=== PATIENT | male | born 1955 ===

== ENCOUNTER 2025-05-31 09:38 | Outpatient (AMB) | payer MEDICARE, OTHER, SELFPAY ==
--- OUTSIDE RECORDS SUMMARY | 2025-05-31 10:14 | XMS_ITS | Clinical Summary ---
Author Organization [address] Address [address] [place] [address] Phone Care Team Providers Care Auto Suspension And Steering Mechanic Name Role Phone Jaxson Stanton MD Primary Care Provider [phone] Allergies Active Allergy Reactions Criticality Noted Date Comments Fluorouracil-Adhesive Bandage Rash 2024 Lobster 09/17/2024 Penicillins 09/17/2024 Shrimp 09/17/2024 Medications aspirin 81 mg capsule Take 81 mg by mouth. 1 Active vitamin D3-vitamin K2 1,250-200 mcg capsule Take 5,000 Int'l Units by mouth. 6 Active cetirizine (Aller-Madelaine) 10 mg tablet Take 1 tablet (10 mg total) by mouth. 0 Active calcium carbonate (Tums Ultra) 1,000 mg (400 mg elemental calcium) chewable tablet 1 tablet (1,000 mg total). 3 Active atorvastatin (LIPITOR) 20 mg tablet Take 1 tablet (20 mg total) by mouth 1 (one) time each day. Active glucos sul 3GWs-auy-ncvvz- C-Mn (Glucosamine Chondroitin) 550-30-1 mg capsule Take by mouth. 0 Active fluticasone propionate (FLONASE) 50 mcg/actuation nasal spray USE TWICE IN EACH NOSTRIL DAILY Active clobetasoL (TEMOVATE) 0.05 % cream APPLY TOPICALLY EVERY MORNING AND EVENING TO RASH ON HANDS, CHEST, BACK, LEGS + ARMS WHEN NEEDED 4 Active mupirocin (BACTROBAN) 2 % ointment APPLY EVERY MORNING AND EVERY EVENING TOPICALLY TO BUMPS AROUND THE LEFT EYE DURING OUTBREAK FOR 7 TO 10 DAYS 4 Active neomycin-polymy reilly-dexamethame thasone (POLYDEX) 3.5 mg/g-10,000 unit/g-0.1 % ointment APPLY TO THE UPPER EYELID OF THE RIGHT EYE AT BEDTIME FOR ONE WEEK 4 Active pimecrolimus (ELIDEL) 1 % cream APPLY DAILY TO TWICE DAILY ON FACE NEEDED 4 Active estradioL (ESTRACE) 0.01 % (0.1 mg/gram) vaginal cream Insert 1 g into the vagina 3 (three) times a week. 4 Active propranoloL (INDERAL) 10 mg tablet Take 1 tablet (10 mg total) by mouth at bedtime. Active magnesium citrate solution Take by mouth 1 (one) time. Active esomeprazole (NexIUM) 40 mg packet Take 40 mg by mouth 1 (one) time each day before breakfast. Active zfjd-yswg-bli-y eu-ttv-tnld-hor [phone] mg tablet Take by mouth. Activ e calcium carbonate (OS-TED) 1,250 mg (500 mg elemental calcium) tablet Take 1 tablet (1,250 mg total) by mouth. Active lisinopriL (PRINIVIL,ZESTR IL) 5 mg tablet Take 1 tablet (5 mg total) by mouth 1 (one) time each day. Active Active Problems Problem Noted Date Diagnosed Date FHx: colonic polyps 09/17/2024 Primary hypertension 09/17/2024 Acne rosacea 09/17/2024 Murmur, heart 09/17/2024 Obstructive sleep apnea syndrome 06/22/2020 Osteoarthritis of hip 11/02/2011 Resolved Problems Problem Noted Date Diagnosed Date Resolved Date Atrial septal defect 09/17/2024 024 Surgical History Surgery Date Site/Laterality Comments COLONOSCOPY 10/14/2018 - 10/13/2019 recall 5-years, fhx polyps, phx polyps. Dr. hirsch TOTAL HIP ARTHROPLASTY 10/14/2015 - 10/13/2016 Right WRIST FRACTURE SURGERY Bilateral REVISION TOTAL HIP ARTHROPLASTY Right BLADDER SUSPENSION WITH RECTOCELE REPAIR Medical History Medical History Date Comments Hypertension Heart murmur Sleep apnea Family History Medical History Relation Name Comments Colon polyps Brother 1 bleeding ulcer Brother 2 passed from b lood loss due to bleeding gastric ulcer Colon cancer Sister 1 Colon polyps Sister 1 cholangiocarcinoma Sister 2 Relation Name Status Comments Brother 1 Alive Brother 2 Sister 1 Alive Sister 2 (Age early 60s) Social History Tobacco Use Types Packs/Day Years Used Date Smoking Tobacco: Never Smokeless Tobacco: Never Tobacco Cessation:Counseling Given: Not Answered Alcohol Use Standard Drinks/Week Comments Yes 3 (1 standard drink = 0.6 oz pur e alcohol) WEEKENDS Interpersonal Safety Answer Date Record ed Physical Abuse 01/05/2025 Verbal Abuse 01/05/2025 Comments Unknown Sex and Gender Information Value Date Recorded Sex Assigned at Female 01/04/2025 10:15 AM EDT Legal Sex Female 8:32 AM EST Gender Identity Female 01/04/2025 10:15 AM EDT Sexual Orientation Not on file Obstetrics History Last Filed Vital Signs Vital Sign Reading Time Taken Comments Blood Pressure 112/69 01/05/2025 11:30 AM EDT Pulse 65 01/05/2025 11:30 AM EDT Temperature 36.9 C (98.4 F) 01/05/2025 11:20 AM EDT Respiratory Rate 18 01/05/2025 11:30 AM EDT Oxygen Saturation 98% 01/05/2025 11:30 AM EDT Inhaled Oxygen Concentration - - Weight 68 kg (150 lb) 01/05/2025 10:35 AM EDT Height 152.4 cm (5') 01/05/2025 10:35 AM EDT Body Mass Index 29.29 01/05/2025 10:35 AM EDT Plan of Treatment Health Maintenance Due Date Last Done Comments Breast Cancer Screening 1955 Cholesterol Screening (Lipid Panel) 08/18/2024 Hepatitis C Screening 08/18/2024 Medicare Annual Wellness Visit 08/18/2024 Osteoporosis Screening (Bone Density Screening) 08/18/2024 Social Influencers of Health Screening 08/18/2024 Hypertension/CHF/CAD Annual BMP Blood Test 09/17/2024 Depression Screening 10/14/2024 COVID-19 Vaccine (7 - Pfizer risk season) 2025 08/10/2024, 07/31/2023, 07/09/2022, Additional history exists Influenza Vaccine (#1) 2025 , 09/02/2023, 08/22/2022, Additional history exists Falls Risk Assessment 01/05/2026 01/05/2025 DTaP,Tdap,and Td Vaccines (4 - Td or Tdap) 01/16/2029 01/16/2019, 07/07/2010, 05/12/2001 Colorectal Cancer Screening: Colonoscopy 01/05/2035 01/05/2025 Zoster Vaccines Completed 08/07/2019, 07/15, 04/27/2019 Pneumococcal Vaccine: 50+ Years Completed 04/04/2023 RSV Immunization Adult Patients Completed 09/09/2023 HIB Vaccines Aged Out No longer eligi ble based on patient's age to complete this topic HPV Vaccines Aged Out No longer eligi ble based on patient's age to complete this topic Hepatitis A Vaccines Aged Out No long er eligible based on patient's age to complete this topic Hepatitis B Vaccines Aged Out No long er eligible based on patient's age to complete this topic IPV Vaccines Aged Out No longer eligi ble based on patient's age to complete this topic MMR Vaccines Aged Out No longer eligi ble based on patient's age to complete this topic Meningococcal ACWY Vaccine Aged Out N o longer eligible based on patient's age to complete this topic Meningococcal B Vaccine Aged Out No l onger eligible based on patient's age to complete this topic RSV Immunization Patients Under 20 months Aged Out No longer eligible based on patient's age to complete this topic Varicella Vaccines Aged Out No longer eligible based on patient's age to complete this topic Medical Devices Implanted Type Area Hired Hand Device Identifier Shelf Expiration Date Model / Serial / Lot Implants Implants Right: Hip Procedures Procedure Name Priority Date/Time Associated Diagnosis Comments COLONOSCOPY Routine 01/05/2025 11:09 AM EDT Personal history of colon polyps, unspecified Family history of colon polyps, unspecified Colon cancer screening from Last 3 Months or Most Recently Relevant to Health Maintenance Results * COLONOSCOPY Anesthesia - MAC; [facility] ENDOSCOPY (01/05/2025 11:09 AM EDT) Anatomical Region Laterality Modality Other 01/05/2025 10:4 0 AM EDT Impressions 01/05/2025 11:11 AM EDT - The examined portion of the ileum was normal. - One 1 mm polyp in the cecum, removed with a cold snare. Resected and retrieved. - One 3 mm polyp in the ascending colon, removed with a cold snare. Resected and retrieved. - Three 2 to 4 mm polyps in the transverse colon, removed with a cold snare. Resected and retrieved. - Diverticulosis in the sigmoid colon. - Internal hemorrhoids. Recommendation: - Await pathology results. - Repeat colonoscopy for surveillance based on pathology results. Narrative 01/05/2025 11:11 AM EDT [facility] GI Patient Name: Kaleigh Elder Procedure Date: 01/05/2025 10:40 AM Date of : 1955 Age: 69 Gender: Female Note Status: Finalized Attending MD: Moriah Doe MD, Procedure Date No Time: 01/05/2025 Procedure: Colonoscopy Indications: High risk colon cancer surveillance: Personal history of colonic polyps, Family history of advanced adenomas of the colon in multiple first-degree relatives (sister recently had 24 polyps with CRC in one polyp). Providers: Moriah Doe MD Referring MD: Jaxson Stanton MD Medicines: Propofol per Anesthesia Complications: No immediate complications. Estimated Blood Loss: Estimated blood loss: none. Procedure: Pre-Anesthesia Assessment: - ASA Grade Assessment: II - A patient with mild systemic disease. After I obtained informed consent, the scope was passed under direct vision. Throughout the procedure, the patient's blood pressure, pulse, and oxygen saturations were monitored continuously.The Olympus Pediatric Colonoscope was introduced through the anus and advanced to the terminal ileum. The colonoscopy was performed without difficulty. The patient tolerated the procedure well. The quality of the bowel preparation was good. Findings: The perianal and digital rectal examinations were normal. The terminal ileum appeared normal. A 1 mm polyp was found in the cecum. The polyp was sessile. The polyp was removed with a cold snare. Resection and retrieval were complete. A 3 mm polyp was found in the ascending colon. The polyp was sessile. The polyp was removed with a cold snare. Resection and retrieval were complete. Three sessile polyps were found in the transverse colon. The polyps were 2 to 4 mm in size. These polyps were removed with a cold snare. Resection and retrieval were complete. Multiple small-mouthed diverticula were found in the sigmoid colon. Internal hemorrhoids were found during retroflexion. The hemorrhoids were Grade I (internal hemorrhoids that do not prolapse). Procedure Code(s): --- Professional --- 21756, Colonoscopy, flexible; with removal of tumor(s), polyp(s), or other lesion(s) by snare technique Diagnosis Code(s): --- Professional --- Z86.010, Personal history of colonic polyps D12.0, Benign neoplasm of cecum D12.2, Benign neoplasm of ascending colon D12.3, Benign neoplasm of transverse colon (hepatic flexure or splenic flexure) CPT copyright 2020 [employer]. All rights reserved. The codes documented in this report are preliminary and upon oyster harvester review may be revised to meet current compliance requirements. Moriah Doe MD 01/05/2025 11:10:52 AM This report has been signed electronically.Moriah Doe MD Number of Addenda: 0 Note Initiated On: 01/05/2025 10:40 AM Scope In: Scope Out: Endoscopy Department at [facility] - [address] [place] [id number] Procedure Note Moriah Doe MD - 01/05/2025 [facility] GI Patient Name: Kaleigh Elder Procedure Date: 01/05/2025 10:40 AM Date of : 1955 Age: 69 Gender: Female Note Status: Finalized Attending MD: Moriah Doe MD, Procedure Date No Time: 01/05/2025 Procedure: Colonoscopy Indications: High risk colon cancer surveillance: Personalhistory of colonic polyps, Family history of advancedadenomas of the colon in multiple first-degree relatives (sister recently had 24 polyps with CRC in onepolyp). Providers: Moriah Doe MD Referring MD: Jaxson Stanton MD Medicines: Propofol per Anesthesia Complications: No immediate complications. Estimated Blood Loss: Estimated blood loss: none. Procedure: Pre-Anesthesia Assessment: - ASA Grade Assessment: II - A patient with mild systemic disease. After I obtained informed consent, the scope was passed under direct vision. Throughout theprocedure, the patient's blood pressure, pulse, and oxygen saturations were monitored continuously.The Olympus Pediatric Colonoscope was introduced through theanus and advanced to the terminal ileum. The colonoscopy was performed without difficulty. The patient tolerated the procedure well. The quality of thebowel preparation was good. Findings: The perianal and digital rectal examinations were normal. The terminal ileum appeared normal. A 1 mm polyp was found in the cecum. The polyp was sessile. The polyp was removed with a cold snare. Resection and retrieval were complete. A 3 mm polyp was found in the ascending colon. The polyp was sessile. The polyp was removed with acold snare. Resection and retrieval were complete. Three sessile polyps were found in the transverse colon. The polyps were 2 to 4 mm in size. Thesepolyps were removed with a cold snare. Resection and retrieval were complete. Multiple small-mouthed diverticula were found inthe sigmoid colon. Internal hemorrhoids were found duringretroflexion. The hemorrhoids were Grade I (internal hemorrhoids that do not prolapse). Procedure Code(s): --- Professional --- 43217, Colonoscopy, flexible; with removal of tumor(s), polyp(s), or other lesion(s) by snare technique Diagnosis Code(s): --- Professional --- Z86.010, Personal history of colonic polyps D12.0, Benign neoplasm of cecum D12.2, Benign neoplasm of ascending colon D12.3, Benign neoplasm of transverse colon (hepatic flexure or splenic flexure) CPT copyright 2020 [employer]. All rights reserved. The codes documented in this report are preliminary and upon oyster harvester reviewmay be revised to meet current compliance requirements. Moriah Doe MD 01/05/2025 11:10:52 AM This report has been signed electronically.Moriah Doe MD Number of Addenda: 0 Note Initiated On: 01/05/2025 10:40 AM Scope In: Scope Out: Endoscopy Department at [facility] - [address] [place] [phone] IMPRESSION: - The examined portion of the ileum was normal. - One 1 mm polyp in the cecum, removed with a cold snare. Resected and retrieved. - One 3 mm polyp in the ascending colon, removedwith a cold snare. Resected and retrieved. - Three 2 to 4 mm polyps in the transverse colon, removed with a cold snare. Resected andretrieved. - Diverticulosis in the sigmoid colon. - Internal hemorrhoids. Recommendation: - Await pathology results. - Repeat colonoscopy for surveillance based on pathology results. Moriah Doe MD GI~PROCEDURE ORDERABLES Final Result from Last 3 Months or Most Recently Relevant to Health Maintenance Insurance MEDICARE [facility] Care Teams Auto Suspension And Steering Mechanic Relationship Specialty Start Date End Date Jaxson Stanton MD [address] [place] [phone] PCP - General Internal Medicine 08/18/24
== END 2025-05-31 10:13 | disposition home or self-care (01) ==
LOC: HO.HMGAL 09:38
PROVIDERS: PCP Internal Medicine; Visit Provider Registered Nurse Emergency
DX: J30.89 Other allergic rhinitis (principal)
CPT/HCPCS: 95117; 95165

== ENCOUNTER 2025-06-16 15:42 | Outpatient (AMB) | payer MEDICARE, OTHER, SELFPAY ==
--- OUTSIDE RECORDS SUMMARY | 2024-05-08 07:21 | XMS_ITS | Continuity of Care Document ---
Author Organization [facility] Address [address] [place] [address] Phone Care Team Providers Care Advanced Research Programs Director Name Role Phone Stepan CALVILLO, RVT, RPVI, Zachary Louie U navailable Allergies, Adverse Reactions, Alerts Substance Reaction Status Criticality shellfish derived Active No Informa tion PENICILLIN Active No Information Medications Medication Instructions Dosage Effective Dates (start - stop) Status Comments lisinopril 5 mg tablet - Act hesham atorvastatin 20 mg tablet - Active ESTRADIOL (unknown strength) Not Available - Active Procedures Procedure Date Office/Outpt E&M Established 15 Mins- CT & [place] Duplex Scan-extrem Veins; Uni/ CT & [place] J Office/Outpt E&M Established 15 Mins Oct Duplex Scan-extrem Veins; / 24 Duplex Scan-extrem Veins; / 23 Ultrason Guidan Needle Bx-rad 3 Inj Sclerosing Solution; Sngl 3 Office/Outpt E&M Established 10 Mins Jul Duplex Scan-extrem Veins; 23 Inj Scleros Solut; Mx Veins 1 3 Ultrason Guidan Needle Bx-rad 3 Duplex Scan-extrem Veins; / 23 Varithena, Single Truncal Vein Endovenous Laser, 1st Vein Endovenous laser vein addon Offic/outpt E&m Estab 5 Min Trial - Tele medicine Duplex Scan-extrem Veins; Comp Office/Oupt E&M New Pt 45 Mins Advance Directives Directive Yes / No Effective Date File Name No Information Encounters Encounter Description Practice Location Reason(s) For Visit Diagnoses Date Provider Providers Copied on Encounter [facility] MD MURPHY, [address] [place] [address] Dr Kuhn [address], [place], [id number], [place] tel:[phone] CVR - [facility] No Information 4 Stepan CALVILLO RVT, JOHN Sharma. [address] [place] [address], [place], [id number] , [place]. tel:[phone] Office/Outpt E&M Established 15 Mins- CT & [place] [facility] MD MURPHY, [address] [place] [address] Dr [facility] [address], [id number], [place] tel:[phone] CVR - [facility] Essential (primary) hypertensionVe nous insufficiency (chronic) (peripheral)Ne vus, non-neoplastic 4 Stepan CALVILLO RVT, RPVI Robert. [address] [place] [address], [facility] [place], [id number] , [place]. tel:[phone] Referring Provider: Jaxson Fernandez, [address] [place], [place] [address], [address]. tel:[phone] [facility] MD MURPHY, [address] [place] [address] Dr Kuhn [address], [id number], [place] tel:[phone] CVR - [facility] Encounter for follow-up examination after completed treatment for conditions other than malignant nePain in right leg 4 Stepan CALVILLO RVT, RPVI Robert. [address] [place] [address], [place] [address], [facility] [place] [place], [id number] , [place]. tel:[phone] Referring Provider: Jaxson Fernandez, [facility] [place] [address] [place], [address]. tel:[phone] Office/Outpt E&M Established 15 Mins [facility], [address] [place] [address] Dr Kuhn [address] [address], [id number], tel:[phone] [facility] [place] [facility] [place] Chronic venous hypertension (idiopathic) without complications of bilateral lower extremityEssen tial (primary) hypertension 4 Stepan CALVILLO RVT, JOHN Sharma. [address] [place] [address], [place], [place], [id number] , [place]. [phone] Referring Provider: Jaxson Fernandez, [address] [place], [place] [address] [place], [address]. tel:[phone] [facility], [address] [place] [address] Dr Kuhn 1000[facility] Kyle Cage [place], [id number], [place] tel:[phone] CVR - [facility] Encounter for follow-up examination after completed treatment for conditions other than malignant neVaricose veins of right lower extremity with pain 4 Stepan CALVILLO RVT, JOHN Sharma. [address] [place] [address], [place], [place], [id number] , [place]. tel:[phone] Referring Provider: Jaxson Stanton MD R, [address] [place], [place] [address] [place], [address]. tel:[phone] [facility], [address] [place] [address] Dr Kuhn 1000[facility] Kyle Cage [place], [id number], [place] tel:[phone] CVR - [facility] Encounter for follow-up examination after completed treatment for conditions other than malignant neoplasmVarico se veins of right lower extremity with pain 3 Herbert Bobby. [address] [place] [address], [facility] [place], [address], [place]. tel:[phone] Referring Provider: Jaxson Fernandez, [address] [place], [place] [address] [place], [address]. tel:[phone] [facility], [address] [place] [address] [address], [id number], [place] tel:[phone] [facility] - [place] [facility] [place] Varicose veins of right lower extremity with inflammation 3 Stepan CALVILLO RVT, JOHN Sharma. [address] [facility], [address], [place], [id number] , [place]. tel:[phone] Referring Provider: Jaxson Stanton MD R, [facility], [place], [address]. tel:[phone] Office/Outpt E&M Established 10 Mins Darion [facility], [address] [place] [address] Dr Kuhn 1000[address] 1000[place], [id number], [place] tel:[phone] [facility] [place] [facility] [place] Varicose veins of right lower extremity with other complicationsE ssential (primary) hypertension 3 Stepan CALVILLO RVT, JOHN Sharma. [address] [place] [address], [address], [place]tor [place]on [place], [id number] , [place]. tel:[phone] Referring Provider: Jaxson Stanton MD R, [address] [place] [address], [place], [address]. tel:[phone] [facility]ion Jim[facility], [address] [place] [address] Dr Kuhn 1000[address], [id number], [place] tel:[phone] [facility] - [place] [facility] [place] Encounter for follow-up examination after completed treatment for conditions other than malignant neoplasmVarico se veins of right lower extremity with pain 3 Herbert Bobby. [address] [facility] [facility], [address], [place], [address], [place]. tel:[phone] Referring Provider: Jaxson Stanton MD R, [facility] [address], [place], [address]. tel:[phone] Dar[facility] Jim[facility], [address] [place] [address] [address], [id number], [place] tel:[phone] [facility] Chronic venous hypertension (idiopathic) with inflammation of right lower extremity Oct-0 3 Stepan CALVILLO RVT, RPVI Robert. [address] [place] [address], [place], [place], [id number] , [place]. tel:[phone] Referring Provider: Jasxon Stanton MD R, [address] [place] [address], [facility] [place], [address]. tel:[phone] [facility], [address] [place] [address] [facility] [address] 1000[place], [id number], [place] tel:[phone] [facility] Encounter for follow-up examination after completed treatment for conditions other than malignant neVaricose veins of right lower extremity with pain Oct-0 3 Herbert Bobby. [address] [place] [address], [place], [address], [place]. tel:[phone] Referring Provider: Jaxson Stanton MD R, [address] [place] [address], [facility] [place], [address]. tel:[phone] [facility], [address] [place] [address] [facility] 1000[address] 1000[place], [id number], [place] tel:[phone] [facility] Chronic venous hypertension w inflammation of r low extrem Sep-2 3 Stepan CALVILLO RVT, RPVI Robert. [address] [place] [address], [facility] [place], [id number] , [place]. tel:[phone] Referring Provider: Jaxson Stanton MD R, [address] [place] [address], [facility] [place], [address]. tel:[phone] [facility], [address] [place] [address] Dr Kuhn 1000[address] 1000[place], [id number], [place] tel:[phone] [facility] Chronic venous hypertension w inflammation of r low extrem Sep-2 3 Stepan CALVILLO RVT, RPVI Robert. [address] [place] [address], [place], [place], [id number] , [place]. tel:[phone] Referring Provider: Jaxson Stanton MD R, [address] [place] [address], [facility] [place], [address]. tel:[phone] Offic/outpt E&m Estab 5 Min Trial - Telemedicine [facility], [address] [place] [address] [facility] [address] [address], [id number], [place] tel:[phone] [facility] - [place] [facility] [place] Chronic venous htn w oth comp of bilateral low extrm 3 Herbert CALVILLO FACS RVT JOHN Bobby. [address] [place] [address], [place], [address], [place]. tel:[phone] Referring Provider: Jaxson Stanton MD R, [address] [place] [address], [facility] [place], [address]. tel:[phone] [facility] [facility], [address] [place] [address] [facility] [address] [address], [id number], [place] tel:[phone] [facility] [place] [facility] [place] Varicose veins of bilateral lower extremities with pain 3 Herbert CALVILLO FACS RVT JOHN Bobby. [address] [place] [address], [place], [address], [place]. tel:[phone] Referring Provider: Jaxson Stanton MD R, [address] [place] [address], [place], [address]. tel:[phone] Office/Oupt E&M New Pt 45 Mins [facility], [address] [place] [address] [facility] [address], [id number], [place] tel:[phone] [facility] [place] [facility] [place] Varicose veins of bi low extrem w oth complicationsP ain in right lower legPain in left lower legEssential (primary) hypertensionFl ail joint, unspecified jointPain in right legPain in left leg 3 Stepan CALVILLO, RVT, JOHN Sharma. [address] [place] [address], [address], [place], [id number] , [place]. tel:[phone] Referring Provider: Jaxson Stanton MD R, [address] [facility] [address], [place] Baltazar [place], [address]. tel:[phone] Family History Family Member Type Diagnosis Age At Onset No Information Payers Payer name Insurance type Covered democrat ID Authoriza tirama(s) Medicare BALTAZAR ROMAN [id number] [facility] [id number] Social History Type Description Quantity Date Captured Comments Alcohol Use Details Unknown Caffeine Use Details Unknown Tobacco Use Status No Information Smoking Status No Information Sex Female Chief Complaint And Reason For Visit No Information Reason For Referral Reason For Referral No Information Plan Of Treatment Date Type Action Status Goal Tobacco cessation counseling completed Goal Diet education completed Goal Tobacco cessation counseling completed Goal Diet education completed Goal Tobacco cessation counseling completed Goal Tobacco cessation counseling completed Goal Diet education completed Goal Tobacco cessation counseling completed Referral Ordered: Weight management: Referral to physician timeframe: 3 Months (related to Body mass index (BMI) 28.0-28.9, adult) ordered Referral Ordered: Weight management: Referral to physician timeframe: 3 Months (related to Body mass index (BMI) 28.0-28.9, adult) ordered Referral Ordered: Weight management: Referral to physician timeframe: 3 Months (related to Body mass index (BMI) 28.0-28.9, adult) ordered Appointment Kaleigh Elder BOOKED Appointment Kaleigh Elder BOOKED History Of Present Illness Encounter Date Complaint History Of Prese nt Illness No Information Functional Status Date Functional Assessmen t No Information Instructions Date Instruction Additional Infor mation Lifestyle education Related to B veronica mass index (BMI) 28.0-28.9, adult Giving Encouragement to exercise Related to Body mass index (BMI) 28.0-28.9, adult Diet education Related to Body mass index (BMI) 28.0-28.9, adult Patient education booklet given Related to Venous insufficiency (chronic) (peripheral) Compression stocking usage as conservative measure Related to Venous insufficiency (chronic) (peripheral) Compression stocking usage as conservative measure Related to Chronic venous hypertension (idiopathic) without complications of bilateral lower extremity Pre and post instruc tions reviewed and provided Related to Chronic venous hypertension (idiopathic) without complications of bilateral lower extremity Lifestyle education Related to B veronica mass index (BMI) 28.0-28.9, adult Giving Encouragement to exercise Related to Body mass index (BMI) 28.0-28.9, adult Diet education Related to Body mass index (BMI) 28.0-28.9, adult Compression stocking usage as conservative measure Related to Varicose veins of right lower extremity with other complications Pre and post instruc tions reviewed and provided Related to Varicose veins of right lower extremity with other complications Patient education booklet given Related to Chrn Vns Hyprtnsn w/Compl (Pain Edema Swelling); BILAT Diet education Related to Body mass index (BMI) 28.0-28.9, adult Giving Encouragement to exercise Related to Body mass index (BMI) 28.0-28.9, adult Lifestyle education Related to B veronica mass index (BMI) 28.0-28.9, adult Patient education booklet given Related to Varicose veins of bi low extrem w oth complications Pre and post instruc tions reviewed and provided Related to Varicose veins of bi low extrem w oth complications Assessments Type Assessment Date No Information Patient Care Teams Name Effective Dates (start - stop) Status Members No Information
--- OUTSIDE RECORDS SUMMARY | 2025-06-16 17:39 | XMS_ITS | Clinical Summary ---
Author Organization [address] Address [address] [place] [address] Phone Care Team Providers Care Knife Operator Name Role Phone Jaxson Stanton MD Primary Care Provider [phone] Allergies Active Allergy Reactions Criticality Noted Date [...] (one) time each day. Active glucos sul 4TXr-mut-wepmo- C-Mn (Glucosamine Chondroitin) 550-30-1 mg capsule Take [...] (one) time each day before breakfast. Active zrqp-vsvp-wsp-y de-sws-dbqb-hor [phone] mg tablet Take by mouth. Activ e [...] this topic Medical Devices Implanted Type Area Manager Lab Device Identifier Shelf Expiration Date Model / Serial / Lot Implants Implants Right: Hip Procedures Procedure Name Priority Date/Time Associated Diagnosis Comments COLONOSCOPY Routine 01/05/2025 11:09 AM EDT Personal history of colon polyps, unspecified Family history of colon polyps, unspecified Colon cancer screening from Last 3 Months or Most Recently Relevant to Health Maintenance Results * COLONOSCOPY Anesthesia - MAC; [facility] ENDOSCOPY (01/05/2025 11:09 AM EDT) Anatomical Region [...] pathology results. Narrative 01/05/2025 11:11 AM EDT [facility] GI Patient Name: Kaleigh Elder Procedure Date: [...] not prolapse). Procedure Code(s): --- Professional --- 64572, Colonoscopy, flexible; with removal of tumor(s), polyp(s), or other lesion(s) by snare technique Diagnosis Code(s): --- Professional --- Z86.010, Personal history of colonic polyps D12.0, Benign neoplasm of cecum D12.2, Benign neoplasm of ascending colon D12.3, Benign neoplasm of transverse colon (hepatic flexure or splenic flexure) CPT copyright 2020 [employer]. All rights reserved. The codes documented in this report are preliminary and upon meat soaker review may be revised to meet current compliance requirements. Moriah Doe MD 01/05/2025 11:10:52 AM This report has been signed electronically.Moriah Doe MD Number of Addenda: 0 Note Initiated On: 01/05/2025 10:40 AM Scope In: Scope Out: Endoscopy Department at [facility] - [address] [place] [phone] Procedure Note Moriah Doe MD - 01/05/2025 [facility] GI Patient Name: Kaleigh Elder Procedure Date: [...] not prolapse). Procedure Code(s): --- Professional --- 96423, Colonoscopy, flexible; with removal of tumor(s), polyp(s), or other lesion(s) by snare technique Diagnosis Code(s): --- Professional --- Z86.010, Personal history of colonic polyps D12.0, Benign neoplasm of cecum D12.2, Benign neoplasm of ascending colon D12.3, Benign neoplasm of transverse colon (hepatic flexure or splenic flexure) CPT copyright 2020 [employer]. All rights reserved. The codes documented in this report are preliminary and upon meat soaker reviewmay be revised to meet current compliance requirements. Moriah Doe MD 01/05/2025 11:10:52 AM This report has been signed electronically.Moriah Doe MD Number of Addenda: 0 Note Initiated On: 01/05/2025 10:40 AM Scope In: Scope Out: Endoscopy Department at [facility] - [address] [place] [id number] IMPRESSION: - The examined portion of the [...] Recently Relevant to Health Maintenance Insurance MEDICARE [facility] Care Teams Knife Operator Relationship Specialty Start Date End Date Jaxson Stanton MD [address] [place] [phone] PCP - General Internal Medicine 08/18/24
== END 2025-06-16 15:44 | disposition home or self-care (01) ==
LOC: HO.HMGAL 15:42
PROVIDERS: PCP Internal Medicine; Visit Provider Registered Nurse Emergency
DX: J30.89 Other allergic rhinitis (principal)
CPT/HCPCS: 95117; 95165

== ENCOUNTER 2025-06-30 11:44 | Outpatient (AMB) | payer MEDICARE, OTHER, SELFPAY | END 2025-06-30 11:45 | disposition home or self-care (01) | LOC: HO.HMGAL 11:44 | PROVIDERS: PCP Internal Medicine; Visit Provider Registered Nurse Emergency | DX: J30.89 Other allergic rhinitis (principal) | CPT/HCPCS: 95117; 95165 ==

== ENCOUNTER 2025-07-19 13:48 | Outpatient (AMB) | payer MEDICARE, OTHER, SELFPAY ==
--- OUTSIDE RECORDS SUMMARY | 2025-07-19 16:14 | XMS_ITS | Clinical Summary ---
Author Organization [address] Address [address] [place] [address] Phone Care Team Providers Care Metal Furrer Name Role Phone Jaxson Stanton MD Primary Care Provider [phone] Allergies Active Allergy Reactions Criticality Noted Date [...] (one) time each day. Active glucos sul 3CEy-byo-vnrxu- C-Mn (Glucosamine Chondroitin) 550-30-1 mg capsule Take [...] (one) time each day before breakfast. Active geec-lfjz-wnx-y aa-gjo-abhy-hor [id number] mg tablet Take by mouth. Activ e [...] Safety Answer Date Record ed Physical Abuse Unrecognized value 01/05/2025 Verbal Abuse Unrecognized value 01/05/2025 Comments Unknown Sex and Gender Information [...] this topic Medical Devices Implanted Type Area Business Assistant Device Identifier Shelf Expiration Date Model / Serial / Lot Implants Implants Right: Hip Procedures Procedure Name Priority Date/Time Associated Diagnosis Comments COLONOSCOPY Routine 01/05/2025 11:09 AM EDT Personal history of colon polyps, unspecified Family history of colon polyps, unspecified Colon cancer screening from Last 3 Months or Most Recently Relevant to Health Maintenance Results * COLONOSCOPY Anesthesia - MAC; [email or web address] ENDOSCOPY (01/05/2025 11:09 AM EDT) Anatomical Region [...] pathology results. Narrative 01/05/2025 11:11 AM EDT [facility] Patient Name: Kaleigh Elder Procedure [...] not prolapse). Procedure Code(s): --- Professional --- 43978, Colonoscopy, flexible; with removal of tumor(s), polyp(s), or other lesion(s) by snare technique Diagnosis Code(s): --- Professional --- Z86.010, Personal history of colonic polyps D12.0, Benign neoplasm of cecum D12.2, Benign neoplasm of ascending colon D12.3, Benign neoplasm of transverse colon (hepatic flexure or splenic flexure) CPT copyright 2020 [employer]. All rights reserved. The codes documented in this report are preliminary and upon field test engineer review may be revised to meet current compliance requirements. Moriah Doe MD 01/05/2025 11:10:52 AM This report has been signed electronically.Moriah Doe MD Number of Addenda: 0 Note Initiated On: 01/05/2025 10:40 AM Scope In: Scope Out: Endoscopy Department at [facility] - [address] [place] [id number] Procedure Note Moriah Doe MD - 01/05/2025 [facility] Patient Name: Kaleigh Elder Procedure [...] not prolapse). Procedure Code(s): --- Professional --- 69454, Colonoscopy, flexible; with removal of tumor(s), polyp(s), or other lesion(s) by snare technique Diagnosis Code(s): --- Professional --- Z86.010, Personal history of colonic polyps D12.0, Benign neoplasm of cecum D12.2, Benign neoplasm of ascending colon D12.3, Benign neoplasm of transverse colon (hepatic flexure or splenic flexure) CPT copyright 2020 [employer]. All rights reserved. The codes documented in this report are preliminary and upon field test engineer reviewmay be revised to meet current compliance requirements. Moriah Doe MD 01/05/2025 11:10:52 AM This report has been signed electronically.Moriah Doe MD Number of Addenda: 0 Note Initiated On: 01/05/2025 10:40 AM Scope In: Scope Out: Endoscopy Department at [facility] - [address] [place] [id number] IMPRESSION: - The examined portion of the [...] Recently Relevant to Health Maintenance Insurance MEDICARE [facility] Care Teams Metal Furrer Relationship Specialty Start Date End Date Jaxson Stanton MD [address] [place] [address] PCP - General Internal Medicine 08/18/24
== END 2025-07-19 13:49 | disposition home or self-care (01) ==
LOC: HO.HMGAL 13:48
PROVIDERS: PCP Internal Medicine; Visit Provider Registered Nurse Emergency
DX: J30.89 Other allergic rhinitis (principal)
CPT/HCPCS: 95117; 95165

== ENCOUNTER 2025-08-02 11:42 | Outpatient (AMB) | payer MEDICARE, OTHER, SELFPAY | END 2025-08-02 11:43 | disposition home or self-care (01) | LOC: HO.HMGAL 11:42 | PROVIDERS: PCP Internal Medicine; Visit Provider Registered Nurse Emergency | DX: J30.89 Other allergic rhinitis (principal) | CPT/HCPCS: 95117; 95165 ==

== ENCOUNTER 2025-08-18 14:34 | Outpatient (AMB) | payer MEDICARE, OTHER, SELFPAY ==
--- OUTSIDE RECORDS SUMMARY | 2025-06-28 04:00 | XMS_ITS | Continuity of Care Document ---
Author Organization [facility] Address [address] [place] [address] Phone Care Team Providers Care Seo Coordinator Name Role Phone Stepan CALVILLO, RVT, RPVI, [...] E&M Established 15 Mins- CT & [place] Surgical Stockings CVR Reveal Thigh High Duplex Scan-extrem Veins; Comp- CT & [place] Office/Outpt E&M Established 15 Mins- CT & [place] Duplex Scan-extrem Veins; Uni/ CT & [place] J Office/Outpt E&M Established 15 Mins Oct Duplex Scan-extrem Veins; Uni/ 24 Duplex Scan-extrem Veins; Uni/ 23 Ultrason Guidan Needle Bx-rad 3 Inj Sclerosing Solution; Sngl 3 Office/Outpt E&M Established 10 Mins Jul Duplex Scan-extrem Veins; Uni/ 23 Inj Scleros Solut; Mx Veins 1 3 Ultrason Guidan Needle Bx-rad 3 Duplex Scan-extrem Veins; Uni/ Varithena, Single Truncal Vein Endovenous Laser, 1st Vein Endovenous laser vein addon Offic/outpt E&m Estab 5 Min Trial - Tele medicine Duplex Scan-extrem Veins; Comp Office/Oupt E&M New Pt 45 Mins Advance Directives Directive Yes / No Effective Date File Name Other Directive No 06/28/2025 N/A WARNING:The information contained in this section is historical and is provided for information only and does not constitute a legal document or any assurance that the information is still accurate. Please verify the information with the stockton of the legal document before using it for clinical purposes. Encounters Encounter Description Practice Location Reason(s) For Visit Diagnoses Date Provider Providers Copied on Encounter Office/Outpt E&M Established 15 Mins- CT & [place] [facility], [address] [place] [address] [facility] [address] [address], [id number], [place] tel:[phone] [facility] [place] Varicose veins of right lower extremity with other complicationsP ruritus, unspecifiedEss ential (primary) hypertension Sep- 5 Stepan CALVILLO RVT, JOHN Sharma. [address] [place] [address], [facility] [place], [id number] , [place]. tel:[phone] Referring Provider: Jaxson Fernandez, [address] [place] [address], [facility] [address]. tel:[phone] [facility], [address] [place] [address] [facility] [address] [address], [place], [id number], [place] tel:[phone] [facility] [place] Chronic venous hypertension (idiopathic) with other complications of bilateral lower extremity Sep- 5 Stepan CALVILLO RVT, JOHN Sharma. [address] [place] [address], [facility] [place], [id number] , [place]. tel:[phone] Referring Provider: Jaxson Fernandez, [address] [place] [address], [place], [address]. tel:[phone] Office/Outpt E&M Established [facility], [address] [place] [address] Dr [address], [id number], [place] tel:[phone] CV - [facility] Essential (primary) hypertensionVe nous insufficiency (chronic) (peripheral)Ne vus, non-neoplastic 4 Stepan CALVILLO RVT, JOHN Sharma. [address] [place] [address], [place] [address], [facility] [place], [id number] , [place]. tel:[phone] Referring Provider: Jaxson Stanton MD R, [address] [place] [address], [place], [address]. tel:[phone] [place] [facility], [address] [place] [address] [address] [address], [id number], [place] tel:[phone] [facility] - [facility] Encounter for follow-up examination after completed treatment for conditions other than malignant nePain in right leg 4 Stepan CALVILLO RVT, JOHN Sharma. [address] [place] [address], [place], [place], [id number] , [place]. tel:[phone] Referring Provider: Jaxson Stanton MD R, [address] [place] [address], [place], [address]. tel:[phone] Office/Outpt E&M Established 15 Mins [place] [facility], [address] [place] [address] Dr [address]uhn [address], [id number], [place] tel:[phone] CV - [facility] Chronic venous hypertension (idiopathic) without complications of bilateral lower extremityEssen tial (primary) hypertension 4 Stepan CALVILLO RVT, JOHN Sharma. [address] [place] [address], [place] [address], [facility] [place], [id number] , [place]. tel:[phone] Referring Provider: Jaxson Stanton MD R, [address] [place] [address] [place], [address]. tel:[phone] [place] [facility], [address] [place] [address] [facility] [address] [place] [address], [id number], tel:[phone] [facility] [place] [facility] [place] Encounter for follow-up examination after completed treatment for conditions other than malignant neVaricose veins of right lower extremity with pain 4 Stepan CALVILLO RVT, JOHN Sharma. [address] [place] [address], [place] simon [place], [id number] , [place]. tel:[phone] Referring Provider: Jaxson Stanton MD R, [address] [place] [address] [place], [address]. tel:[phone] [place] [facility], [address] [place] [address] [place], [place] [address]K[place], [id number], [place] tel:[phone] CVR - [facility] Encounter for follow-up examination after completed treatment for conditions other than malignant neoplasmVarico se veins of right lower extremity with pain 3 Herbert Bobby. [address] [place] [address], [facility] [place], [address], [place]. tel:[phone] Referring Provider: Jaxson Stanton MD R, [address] [place] [address] [place], [address]. tel:[phone] [place] [facility], [address] [place] [address] Dr [address] [address], [id number], [place] tel:[phone] [facility] Varicose veins of right lower extremity with inflammation 3 Stepan CALVILLO RVT, JOHN Sharma. [address] [place] [address], [facility] [place], [id number] , [place]. tel:[phone] Referring Provider: Jaxson Stanton MD R, [address] [place] [address] [place], [address]. tel:[phone] Office/Outpt E&M Established 10 Mins [facility], [address] [place] [address] [address], [id number], [place] tel:[phone] [facility] Varicose veins of right lower extremity with other complicationsE ssential (primary) hypertension Oct-3 0 3 Stepan CALVILLO, RVT, JOHN Sharma. [address] [place] [address], [address], [facility] [place], [id number] , [place]. tel:[phone] Referring Provider: Jaxson Stanton MD R, [facility] [address], [place], [address]. tel:[phone] [place] [facility], [address] [place] [address] Dr Kuhn [address]Suite [place] Cage [place], [id number], [place] tel:[phone] [facility] [place] Encounter for follow-up examination after completed treatment for conditions other than malignant neoplasmVarico se veins of right lower extremity with pain Oct-3 3 Herbert Bobby. [address] [place] [address], [place] [address], [facility] [place], [address], [place]. tel:[phone] Referring Provider: Jaxson Stanton MD R, [address] [place] [address], [place], [address]. tel:[phone] [place] [facility], [address] [place] [address] [address] [place] Cage [place], [id number], [place] tel:[phone] [facility] Chronic venous hypertension (idiopathic) with inflammation of right lower extremity Oct-0 3 HOLDEN Ying MDT, JOHN Sharma. [address] [place] [address], [address], [facility] [place], [id number] , [place]. tel:[phone] Referring Provider: Jaxson Stanton MD R, [facility] [address], [place], [address]. tel:[phone] [place] [facility], [address] [place] [address] Dr [address]n [address] [place] Cage [place], [id number], [place] tel:[phone] [facility] Encounter for follow-up examination after completed treatment for conditions other than malignant neVaricose veins of right lower extremity with pain Oct-0 3 Herbert CALVILLO FACS HOLDENT JOHN Bobby. [address] [place] [address], [place], [address], [place]. tel:[phone] Referring Provider: Jaxson Stanton MD R, [address] [place] [address], [place], [address]. tel:[phone] [place] [facility], [address] [place] [address] Dr [address] 1000[facility] 1000, [place], [id number], [place] tel:[phone] [facility] Chronic venous hypertension w inflammation of r low extrem Sep-2 3 Stepan CALVILLO, MELITON, JOHN Sharma. [address] [place] [address], [place], [place], [id number] , [place]. tel:[phone] Referring Provider: Jaxson Stanton MD R, [address] [place] [address], [place], [address]. tel:[phone] [place] [facility], [address] [place] [address] Dr [address] [address], [id number], [place] tel:[phone] [facility] Chronic venous hypertension w inflammation of r low extrem Sep-2 3 Stepan CALVILLO, MELITON, JOHN Shamra. [address] [place] [address], [place], [place], [id number] , [place]. tel:[phone] Referring Provider: Jaxson Stanton MD R, [address] [place] [address], [place], [address]. tel:[phone] Offic/outpt E&m Estab 5 Min Trial - Telemedicine [facility], [address] [place] [address] Dr K[address]n [facility] [address], [id number], [place] tel:[phone] [facility] Chronic venous htn w oth comp of bilateral low extrm Aug-3 3 Herbert CALVILLO FACS HOLDENLloyd Bobby. [address] [place] [address], [place] [address], [place], [address], [place]. tel:[phone] Referring Provider: Jaxson Stanton MD R, [address] [place] [address], [place], [address]. tel:[phone] [facility], [address] [place] [address] [address], [place], [id number], [place] tel:[phone] [facility] [place] Varicose veins of bilateral lower extremities with pain 3 Herbert CALVILLO FACS RVT JOHN Bobby. [address] [place] [address], [place] [address], [place], [address], [place]. tel:[phone] Referring Provider: Jaxson Stanton MD R, [address] [place] [address], [place], [address]. tel:[phone] Office/Oupt E&M New Pt 45 Mins [facility], [address] [place] [address] [facility] [address], [place], [id number], [place] tel:[phone] [facility] Varicose veins of bi low extrem w oth complicationsP ain in right lower legPain in left lower legEssential (primary) hypertensionFl ail joint, unspecified jointPain in right legPain in left leg 3 Stepan CALVILLO, RVT, JOHN Sharma. [address] [place] [address], [place] [address], Viktor simon [place], [id number] , [place]. tel:[phone] Referring Provider: Jaxson Stanton MD R, [address] [place] [address], [place], [address]. tel:[phone] Family History Family Member Type Diagnosis Age At Onset No Information Payers Payer name Insurance type Covered libertarian ID Authoriza tion(s) Medicare BALTAZAR ROMAN [id number] [facility] CI [id number] Social History Type Description Quantity Date Captured Comments Alcohol Use Details Unknown Caffeine Use Details Unknown Tobacco Use Status No Information Smoking Status Former Smoker Non-Smoking Tobacco Use Details : No Details Available : No Details Available Sex Female Vital Signs Date / Time: Height Weight BMI Pulse Rate Blood Pressure Temperature Respiratory Rate Body Surface Area Head Circumference Head Circ. Percentile Wt./Kevin. Percentile BMI percentile Pulse Ox Inhaled Ox 68.040 kg (150.00 lbs) 28.3 6 kg/m eter (2) 118/80 mm[Hg] Chief Complaint And Reason For Visit No [...] cessation counseling completed Goal Diet education completed Referral Ordered: Weight management: Referral to [...] Kaleigh Elder BOOKED Appointment Kaleigh Elder BOOKED Appointment Kaleigh Elder BOOKED Appointment Kaleigh Elder BOOKED History Of Present Illness Encounter Date Complaint History Of Prese nt Illness No Information Functional Status Date Functional Assessmen t No Information Instructions Date Instruction Additional Infor marky Patient education booklet given Related to Varicose veins of right lower extremity with other complications Compression stocking usage as conservative measure Related to Varicose veins of right lower extremity with other complications Lifestyle education Related to B veronica mass [...] to Body mass index (BMI) 28.0-28.9, adult Pre and post instruc tions reviewed and provided Related to Varicose veins of right lower extremity with other complications Compression stocking usage as conservative measure Related to Varicose veins of right lower extremity with other complications Patient education booklet given Related to Chrn Vns Hyprtnsn w/Compl (Pain Edema Swelling); BILAT Pre and post instruc tions reviewed and provided Related to Varicose veins of bi low extrem w oth complications Patient education booklet given Related to Varicose veins of bi low extrem w oth complications Lifestyle education Related to B veronica mass index (BMI) 28.0-28.9, adult Giving Encouragement to exercise Related to Body mass index (BMI) 28.0-28.9, adult Diet education Related to Body mass index (BMI) 28.0-28.9, adult Assessments Type Assessment Date No Information Patient Care Teams Name Effective Dates (start - stop) Status Members No Information
--- OUTSIDE RECORDS SUMMARY | 2025-08-18 17:44 | XMS_ITS | Data Portability ---
Author Organization [facility] Address [address] [place] [address] Care Team Providers Care Investigative Research Specialist Name Role Phone ONEIL SANTIAGO Primary Care Provider ONEIL SANTIAGO Referring Provider Assessment No assessment recorded. Plan of Treatment Reminders Order Date Submit Date Provider Last Modified By Organization Details Last Modified Time Details Appointments None recorded. Lab None recorded. Referral physical therapist referral - patient to call for appointment 2022 023 [facility], [address] [place] [address], [id number], 3 16:26:13 Procedures epidural steroid injection, lumbar (PROC) - Dr. Gonzalez - nahid L2-3 2023 024 [email or web address] Not available 4 13:39:19 Surgeries None recorded. Imaging MRI, cervical spine, w/o contrast 2022 023 DANYELLE [facility] ([facility]), [address] [facility], [place], [address], 3 14:58:34 MRI, shoulder, w/o contrast - byrne 2022 023 [email or web address] [facility] ([facility]), [address] [facility], [place], [address], 3 15:40:04 Medication Orders prednisone 5 mg tablet 2022 024 DANYELLE [id number], [address] [facility], [place], [place], [id number], 4 10:28:54 Patient TargetsNo targets recorded. Patient InstructionsNo instructions recorded. Reason for Referral Physical Therapist Referral for Lumbar spondylolisthesis patient to call for appointment home exercise program Referring Physician: Carla Ambrosio, Orthopedic Surgery, Encounter Date: 05/09/2023 Results Created Date Observation Date Name Description Value Unit Range Abnormal Flag Note LastModifiedBy Organization Detail LastModifiedTime 03/05/20 23 03/04/2023 MRI, leonardo mckeon, w/o contr ast [facility] Access ion Number : [id number] Sarah villalpando Name: Kaleigh Christie Record Number : [id number] Date of : 1954 Date of Exam: 2022 Referr ing Physic alice: Tyson Eastman [facility] [address] [facility], [address] [place] [address] Exam: MR Should er (C-) CPT 10896 - Left Room Descri ption: [place] [facility] Verio 3.0T Should er MRI left Clinic al Histor y: Pain Findin gs: Mild acromi oclavi cular osteoa rthrit is Supras pinatu s tendin opathy with superi mposed small low-gr geri partia l articu lar surfac e tear within salgado hed fibers . Advanc ed infras pinatu s tendin opathy with superi mposed small low-gr geri partia l articu lar versus intras ubstan ce tear. Small myoten dinous cyst within the infras pinatu s. The teres minor tendon is intact . Mild fatty atroph y of the teres minor muscle belly Subsca pulari s tendin opathy Intra- articu lar biceps tendin opathy Modera te glenoh umeral osteoa rthrit is. Diffus e absenc e of glenoi d cartil age with modera te glenoh umeral osteop hytosi s. Diffus e labral degene ration . Impres meir: Supras pinatu s tendin opathy with superi mposed low-gr geri partia l tear. Advanc ed infras pinatu s tendin opathy with superi mposed low-gr geri partia l tear. Small myoten dinous cyst within the infras pinatu s Subsca pulari s and biceps tendin opathy . Mild fatty atroph y of the teres minor muscle belly. Findin g can be seen with segundo latera l space syndro me. Mild acromi oclavi cular osteoa rthrit is. Modera te glenoh umeral osteoa rthrit is Electr onical ly Signed By: Mike Gonzalez [email or web address] [facility] ([facility]) [address] [place], [address], 04/05/2023 09:58:32 04/11/20 unk No observ ation record ed. [address], [address] 04/12/2023 07:23:27 04/17/20 23 04/15/2023 MRI, lumba r spine , w/o contr ast [facility] Access ion Number : [id number] Sarah t Name: Owen garcia Kaleigh Phillipsoksana méndez Record Number : [id number] Date of : 1954 Date of Exam: 2022 Referr ing Physic alice: Tyson Eastman [facility] [address] [place] [address] - [address] [place] [address] Exam: MR Lumbar Spine (C-) CPT 91397 Room Descri ption: [facility] Verio 3.0T HISTOR Y: Lumbar radicu lopath y. Left leg pain and parest hesias . Back pain. TECHNI QUE: Multip lanar multis equenc e MRI of the lumbar spine withou t contra st. COMPAR OIN: 019 FINDIN GS: Mild degene rative paolo listhe sis of L4 on L5 and L5 on S1. Mild retrol isthes is of L1 on L2, L2 on L3, and L3 on L4. The lumbar verteb ral bodies are normal in height . No spondy lolysi s. The lumbar discs are desicc ated. Severe loss of height of L1-L2, L2-L3, and L3-L4. The L5-S1 disc is modera te-sev erely dimini shed in height . Mild loss of height of L4-L5. Margin al osteop hytes, facet arthro ses, and Schmor l's nodes are presen t at multip le levels . Degene rative change s of the visual ized lower thorac ic spine are again noted with concen tric disc-o steoph yte comple xes and mild centra l canal narrow ing at T10-T1 1. The visual ized lower thorac ic cord is normal in signal , and the conus termin ates at L2-L3, which is at the lower limits of normal . No epidur al fluid collec tion or cauda equina compre ssion. Fatty atroph y of the cup trimming machine operator ior parasp inal muscul ature. No acute retrop eriton eal abnorm ality. L1-L2: Mild concen tric disc-o steoph yte comple x and facet arthro sis. Minima l centra l canal narrow ing. Mild right and no left forami nal narrow ing. No signif icant change . L2-L3: Concen tric disc-o steoph yte comple x, facet arthro sis, and mild centra l canal narrow ing. Modera te-sev ere right and modera te left forami nal stenos is. No signif icant change . L3-L4: Concen tric disc-o steoph yte comple x, facet arthro sis, and mild left centra l canal and subart icular recess narrow ing. Crowdi ng of the left L3 nerve roots withou t new imping ement. Mild right and severe left forami nal stenos is. No signif icant change . L4-L5: Concen tric disc bulge, facet arthro sis, and ligame ntum flavum infold ing. Mild paolo listhe sis. Mild centra l canal narrow ing. Mild forami nal narrow ing. L5-S1: Degene rative paolo listhe sis, facet arthro sis, and ligame ntum flavum infold ing. Concen tric disc bulge. Mild-m oderat e centra l canal narrow ing is now presen t. Subart icular recess narrow ing with crowdi ng of the S1 nerve roots. Modera te right and modera te-sev ere left forami nal narrow ing with crowdi ng of the left L5 nerve roots. IMPRES MEIR: Degene rative change s of the lower thorac ic and lumbar spine as detail ed above. These can be correl ated with the patien t's sympto ms and neurol ogical examin ation. Electr onical ly Signed By: Torsten [email or web address] [facility] ([facility]) [address], [place], [address], 05/07/2023 08:16:53 09/20/2009/20/2023 XR, cervi marcy spine , 2 or 3 view PRELIM INARY INTERP RETATI ON - NOT A FINAL REPORT RESPON SIBLE INTERP RETER: Ayan cleaning M.D. (resid ent) EXAMIN ATION: XR CERVIC AL SPINE 2 OR 3 VW CLINIC AL INDICA TION: Neck pain. TECHNI QUE: Two views of the cervic al spine. COMPAR ONI: None availa ble. FINDIN GS: There is modera te to severe cervic al spondy losis most pronou nced at C5-6 with large anteri or osteop hytes. There is minima l retrol isthes is of C5 on C6. Verteb ral body alignm ent is otherw ise preser sacha. Verteb ral body height s are preser sacha. The soft tissue s are normal . IMPRES MEIR: Modera te to severe cervic al spondy losis. Dictat ed: 2022 1:54 PM Report ID: [id number]relim inary result report ed in supervisor tubing al system at [facility] on 2022 13:54 Report ed By: Ayan cleaning M.D. (resid ent) ([id number]) [email or web address] [facility] [address] [facility], [place], [address], 09/27/2023 15:07:04 09/20/20 23 09/20/2023 XR, cervi marcy spine , 2 or 3 view RESPON SIBLE INTERP RETER: Wing Bauman M.D. EXAMIN ATION: XR CERVIC AL SPINE 2 OR 3 VW CLINIC AL INDICA TION: Neck pain. TECHNI QUE: Two views of the cervic al spine. COMPAR ONI: None availa ble. FINDIN GS: There is modera te to severe cervic al spondy losis most pronou nced at C5-6 and C6-7 with large anteri or osteop hytes. There is minima l retrol isthes is of C5 on C6, and C6 on C7. Verteb ral body alignm ent is otherw ise preser sacha. Verteb ral body height s are preser sacha. The soft tissue s are normal . IMPRES MEIR: Modera te to severe cervic al spondy losis. I, the attend ing physic alice, attest that I have perfor med and/or superv ised the reside nt for the jurado and critic al compon ents of this proced ure. I have person ally review ed the images pertin ent to this examin ation and agree with the interp retati on. Dictat ed: 2022 1:59 PM Report ID: [id number] Exam perfor med at [facility]. Report signed in supervisor tubing al system at [facility] on 2022 13:59 Report ed By: Ayan cleaning M.D. (resid ent) (ABASI [id number]) Signed By: Wing Bauman M.D. (ROGP) [email or web address] [facility] [address] [facility], [place], [address], 09/27/2023 15:07:05 10/01/2009/30/2023 MRI, cervi marcy spine , w/o contr ast [facility] Access ion Number : [id number] Sarah villalpando Name: Owen garcia, Kaleigh Medica l Record Number : [id number] Date of : 1954 Date of Exam: 2022 Referr ing Physic alice: Tyson Eastman [facility] [address] [facility] [place] [address] Exam: MR Cervic al Spine (C-) CPT 86900 Room Descri ption: [place] [facility] Espr 1.5 INDICA TION: Cervic al radicu lopath y. TECHNI QUE: Multip lanar, multis equenc e MRI of the cervic al spine was perfor med withou t intrav enous contra st. COMPAR ONI: MRI cervic al spine 019. FINDIN GS: There has mild revers al of the normal cervic al lordos is. Mild stairs tep retrol isthes is betwee n C5 and C7 is noted, as well as grade 1 paolo listhe sis of C7 on T1. Verteb ral body height s are mainta ined. Marrow signal is mildly hetero geneou s. Trace mixed Modic 1 and 2 change s are presen t at C5-6 and C6-7. No suspic ious marrow lesion s are seen. Interv ertebr al discs are diffus dionisio desicc ated. There is severe loss of disc space at C5-6 and C6-7. The visual ized cup trimming machine operator ior fossa and cervic omedul jay juncti on are normal . Cord signal is normal throug hout. Indent ation of the cord at C5-6 and C6-7 as furthe r descri bed below. The visual ized soft tissue s of the neck are unrema rkable . Flow voids are preser sacha in the domina nt cervic al vessel s. Specif ic findin gs by level: C2-C3: Small centra l disc protru meir. Right greate r than left facet hypert rophy and mild uncove rtebra l spurri ng. No signif icant centra l stenos is. Modera te right and no left neural forami nal narrow ing. C3-C4: Small centra l protru meir and mild uncove rtebra l spurri ng. Bilate ral facet hypert rophy, left greate r than right. No signif icant centra l stenos is. Mild to modera te right and mild left neural forami nal narrow ing. C4-C5: Disc osteop hyte comple x eccent kris to the right, with right greate r than left uncove rtebra l spurri ng and mild facet hypert rophy. Mild centra l stenos is. Mild to modera te right and mild left neural forami nal narrow ing, increa sed on the right since 2019. C5-C6: Concen tric disc osteop hyte comple x with bilate ral uncove rtebra l spurri ng and facet hypert rophy. Modera te centra l stenos is. Mild indent ation of the ventra l cord, simila r to prior. Severe bilate ral neural forami nal narrow ing. C6-C7: Concen tric disc osteop hyte comple x with bilate ral uncove rtebra l spurri ng and facet hypert rophy, as well as promin ent dorsal epidur al fat. Modera te centra l stenos is with mild flatte halie of the cord especi ally, simila r to prior. No cord signal abnorm ality. Severe bilate ral neural forami nal narrow ing. C7-T1: Mild broad- based disc bulge and bilate ral facet hypert rophy. No signif icant centra l stenos is. Modera te left and no signif icant right neural forami nal narrow ing, increa sed on the left since 2019. IMPRES MEIR: Multil evel degene rative change s in the cervic al spine as descri bed above. * Centra l stenos is is greate st at C5-6 and C6-7 (moder ate), with mild dilata tion of the cord at these levels , simila r to prior examin ation. * Multil evel neural forami nal narrow ing is also noted, which remain s most severe bilate rally at C5-6 and C6-7. There has been slight worsen ing of neural forami nal narrow ing at severa l levels since 2019, includ ing on the right at C4-5 and on the left at C7-T1. Electr onical ly Signed By: Jose Martin escudero [facility] ([facility]) [address], [place], [address], 10/16/2023 16:56:33 05/13/20 24 05/13/2024 XR, hip + pelvi s, unila teral , 2 or 3 view PRELIM INARY INTERP RETATI ON - NOT A FINAL REPORT RESPON SIBLE INTERP RETER: Krystal Plascencia M.D. (resid ent) EXAMIN ATION: XR HIP 2-3 VW LEFT (PELVI S OPTION AL) CLINIC AL INDICA TION: Left hip pain TECHNI QUE: AP view of the pelvis with 2 additi onal views of the left hip. COMPAR ONI: XR HIP 2-3 VW LEFT (PELVI S OPTION AL) dated 023 FINDIN GS: The bones are diffus dionisio demine ralize d. The left femoro acetab ular joint is normal in alignm ent with mild joint space narrow ing and osteop hyte format ion, slight ly progre ssed since 2022. Unchan ged enthes ophyte of the greate r trocha nter. 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 The hardwa re is normal in appear ance. There are degene rative change s of the partia lly imaged lower lumbar spine. The bones of the pelvis are intact . Nonobs tructi ve bowel gas patter n. The soft tissue s are normal . IMPRES MEIR: Mild osteoa rthrit is of the left hip, slight ly progre ssed since 2022. Dictat ed: 2023 10:57 AM Report ID: [id number] Exam perfor med at [facility]. Prelim inary result report ed in supervisor tubing al system at [facility] on 024 10:57 Report ed By: Krystal Plascencia M.D. (resid ent) ([id number]) [facility]) [address] [facility], [place], [address], 06/16/2024 09:42:14 05/13/20 24 05/13/2024 XR, hip + pelvi s, unila teral , 2 or 3 view RESPON SIBLE INTERP RETER: Ramon conde M.D. EXAMIN ATION: XR HIP 2-3 VW LEFT (PELVI S OPTION AL) CLINIC AL INDICA TION: Left hip pain TECHNI QUE: AP view of the pelvis with 2 additi onal views of the left hip. COMPAR ONI: XR HIP 2-3 VW LEFT (PELVI S OPTION AL) dated 023 FINDIN GS: The bones are diffus dionisio homarine chaka d. The left femoro acetab ular joint is normal in alignm ent with mild joint space narrow ing and osteop hyte format ion, slight ly progre ssed since 2022. Unchan ged enthes ophyte of the greate r trocha nter. 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 The hardwa re is normal in appear ance. There are degene rative change s of the partia lly imaged lower lumbar spine. The bones of the pelvis are intact . Nonobs tructi ve bowel gas patter n. The soft tissue s are normal . IMPRES MEIR: Osteoa rthrit is of the left hip, slight ly progre ssed since 2022. I, the attend ing physic alice, attest that I have perfor med and/or superv ised the reside nt for the jurado and critic al compon ents of this proced ure. I have person ally review ed the images pertin ent to this examin ation and agree with the interp retati on. Dictat ed: 2023 11:01 AM Report ID: [id number] Exam perfor med at [facility]. Report signed in supervisor tubing al system at [facility] on 024 11:01 Report ed By: Krystal Plascencia M.D. (resid ent) ([id number]) Signed By: Ramon conde M.D. (REIR) [facility]) [address] [facility], [place], [address], 06/16/2024 09:42:14 Result Notes Documentation Provider Name and Address Organization Details Recorded Time Mri, Shoulder, W/o Contrast : [facility] Accession Number: [id number] Patient Name: Kaleigh Elder Date of : 1955 Date of Exam: 03-04-2023 Referring Physician: Carla Ambrosio [facility] [address], [address] [place] [address] Exam: MR Shoulder (C-) CPT 85622 - Left Room Description: [place] Amer[facility]reio 3.0T Shoulder MRI left Clinical History: Pain Findings: Mild acromioclavicular osteoarthritis Supraspinatus tendinopathy with superimposed small low-grade partial articular surface tear within watershed fibers. Advanced infraspinatus tendinopathy with superimposed small low-grade partial articular versus intrasubstance tear. Small myotendinous cyst within the infraspinatus. The teres minor tendon is intact . Mild fatty atrophy of the teres minor muscle belly Subscapularis tendinopathy Intra-articular biceps tendinopathy Moderate glenohumeral osteoarthritis. Diffuse absence of glenoid cartilage with moderate glenohumeral osteophytosis. Diffuse labral degeneration. Impression: Supraspinatus tendinopathy with superimposed low-grade partial tear. Advanced infraspinatus tendinopathy with superimposed low-grade partial tear. Small myotendinous cyst within the infraspinatus Subscapularis and biceps tendinopathy. Mild fatty atrophy of the teres minor muscle belly. Finding can be seen with quadrilateral space syndrome. Mild acromioclavicular osteoarthritis. Moderate glenohumeral osteoarthritis Electronically Signed By: Diego villalobos [place] - [facility] 04/05/2023 09:58:32 Mri, Lumbar Spine, W/o Contrast : [facility] Accession Number: [id number] Patient Name: Kaleigh Elder Date of : 1955 Date of Exam: 04-15-2023 Referring Physician: Carla Ambrosio [facility] [address] [facility] [address] [place] [address] Exam: MR Lumbar Spine (C-) CPT 65452 Room Description: [place] [facility] 3.0T HISTORY: Lumbar radiculopathy. Left leg pain and paresthesias. Back pain. TECHNIQUE: Multiplanar multisequence MRI of the lumbar spine without contrast. COMPARISON: 04/01/2019 FINDINGS: Mild degenerative anterolisthesis of L4 on L5 and L5 on S1. Mild retrolisthesis of L1 on L2, L2 on L3, and L3 on L4. The lumbar vertebral bodies are normal in height. No spondylolysis. The lumbar discs are desiccated. Severe loss of height of L1-L2, L2-L3, and L3-L4. The L5-S1 disc is moderate-severely diminished in height. Mild loss of height of L4-L5. Marginal osteophytes, facet arthroses, and Schmorl's nodes are present at multiple levels. Degenerative changes of the visualized lower thoracic spine are again noted with concentric disc-osteophyte complexes and mild central canal narrowing at T10-T11. The visualized lower thoracic cord is normal in signal, and the conus terminates at L2-L3, which is at the lower limits of normal. No epidural fluid collection or cauda equina compression. Fatty atrophy of the posterior paraspinal musculature. No acute retroperitoneal abnormality. L1-L2: Mild concentric disc-osteophyte complex and facet arthrosis. Minimal central canal narrowing. Mild right and no left foraminal narrowing. No significant change. L2-L3: Concentric disc-osteophyte complex, facet arthrosis, and mild central canal narrowing. Moderate-severe right and moderate left foraminal stenosis. No significant change. L3-L4: Concentric disc-osteophyte complex, facet arthrosis, and mild left central canal and subarticular recess narrowing. Crowding of the left L3 nerve roots without new impingement. Mild right and severe left foraminal stenosis. No significant change. L4-L5: Concentric disc bulge, facet arthrosis, and ligamentum flavum infolding. Mild anterolisthesis. Mild central canal narrowing. Mild foraminal narrowing. L5-S1: Degenerative anterolisthesis, facet arthrosis, and ligamentum flavum infolding. Concentric disc bulge. Mild-moderate central canal narrowing is now present. Subarticular recess narrowing with crowding of the S1 nerve roots. Moderate right and moderate-severe left foraminal narrowing with crowding of the left L5 nerve roots. IMPRESSION: Degenerative changes of the lower thoracic and lumbar spine as detailed above. These can be correlated with the patient's symptoms and neurological examination. Electronically Signed By: FIGUEROA Moore MD [address] [place] [address], [id number], [facility] 05/07/2023 08:16:54 Xr, Cervical Spine, 2 Or 3 View : PRELIMINARY INTERPRETATION - NOT A FINAL REPORT RESPONSIBLE UNDERTAKER HELPER: Ayan King M.D. (resident) EXAMINATION: XR CERVICAL SPINE 2 OR 3 VW CLINICAL INDICATION: Neck pain. TECHNIQUE: Two views of the cervical spine. COMPARISON: None available. FINDINGS: There is moderate to severe cervical spondylosis most pronounced at C5-6 with large anterior osteophytes. There is minimal retrolisthesis of C5 on C6. Vertebral body alignment is otherwise preserved. Vertebral body heights are preserved. The soft tissues are normal. IMPRESSION: Moderate to severe cervical spondylosis. Dictated: 09/20/2023 1:54 PM Report ID: [id number] Exam performed at [facility]. Preliminary result reported in external system at [facility] on 09/20/2023 13:54 Reported By: Ayan King M.D. (resident) ([id number]) Rabia villalobos [place] - [facility] 09/27/2023 15:07:04 Xr, Cervical Spine, 2 Or 3 View : RESPONSIBLE UNDERTAKER HELPER: Wing Bauman M.D. EXAMINATION: XR CERVICAL SPINE 2 OR 3 VW CLINICAL INDICATION: Neck pain. TECHNIQUE: Two views of the cervical spine. COMPARISON: None available. FINDINGS: There is moderate to severe cervical spondylosis most pronounced at C5-6 and C6-7 with large anterior osteophytes. There is minimal retrolisthesis of C5 on C6, and C6 on C7. Vertebral body alignment is otherwise preserved. Vertebral body heights are preserved. The soft tissues are normal. IMPRESSION: Moderate to severe cervical spondylosis. I, the attending physician, attest that I have performed and/or supervised the resident for the jurado and critical components of this procedure. I have personally reviewed the images pertinent to this examination and agree with the interpretation. Dictated: 09/20/2023 1:59 PM Report ID: [id number] Exam performed at [facility]. Report signed in external system at [facility] on 09/20/2023 13:59 Reported By: Ayan King M.D. (resident) ([id number]) Signed By: Wing Bauman M.D. (ROGP) Rabia villalobos [facility] 09/27/2023 15:07:05 Mri, Cervical Spine, W/o Contrast : [facility] Accession Number: [id number] Patient Name: Kaleigh Elder Date of : 1955 Date of Exam: 09-30-2023 Referring Physician: [facility] [address] [place] [address] Exam: MR Cervical Spine (C-) CPT 21865 Room Description: [facility] Espr 1.5 INDICATION: Cervical radiculopathy. TECHNIQUE: Multiplanar, multisequence MRI of the cervical spine was performed without intravenous contrast. COMPARISON: MRI cervical spine 04/01/2019. FINDINGS: There has mild reversal of the normal cervical lordosis. Mild stairstep retrolisthesis between C5 and C7 is noted, as well as grade 1 anterolisthesis of C7 on T1. Vertebral body heights are maintained. Marrow signal is mildly heterogeneous. Trace mixed Modic 1 and 2 changes are present at C5-6 and C6-7. No suspicious marrow lesions are seen. Intervertebral discs are diffusely desiccated. There is severe loss of disc space at C5-6 and C6-7. The visualized posterior fossa and cervicomedullary junction are normal. Cord signal is normal throughout. Indentation of the cord at C5-6 and C6-7 as further described below. The visualized soft tissues of the neck are unremarkable. Flow voids are preserved in the dominant cervical vessels. Specific findings by level: C2-C3: Small central disc protrusion. Right greater than left facet hypertrophy and mild uncovertebral spurring. No significant central stenosis. Moderate right and no left neural foraminal narrowing. C3-C4: Small central protrusion and mild uncovertebral spurring. Bilateral facet hypertrophy, left greater than right. No significant central stenosis. Mild to moderate right and mild left neural foraminal narrowing. C4-C5: Disc osteophyte complex eccentric to the right, with right greater than left uncovertebral spurring and mild facet hypertrophy. Mild central stenosis. Mild to moderate right and mild left neural foraminal narrowing, increased on the right since 2019. C5-C6: Concentric disc osteophyte complex with bilateral uncovertebral spurring and facet hypertrophy. Moderate central stenosis. Mild indentation of the ventral cord, similar to prior. Severe bilateral neural foraminal narrowing. C6-C7: Concentric disc osteophyte complex with bilateral uncovertebral spurring and facet hypertrophy, as well as prominent dorsal epidural fat. Moderate central stenosis with mild flattening of the cord especially, similar to prior. No cord signal abnormality. Severe bilateral neural foraminal narrowing. C7-T1: Mild broad-based disc bulge and bilateral facet hypertrophy. No significant central stenosis. Moderate left and no significant right neural foraminal narrowing, increased on the left since 2019. IMPRESSION: Multilevel degenerative changes in the cervical spine as described above. * Central stenosis is greatest at C5-6 and C6-7 (moderate), with mild dilatation of the cord at these levels, similar to prior examination. * Multilevel neural foraminal narrowing is also noted, which remains most severe bilaterally at C5-6 and C6-7. There has been slight worsening of neural foraminal narrowing at several levels since 2019, including on the right at C4-5 and on the left at C7-T1. Electronically Signed By: Arminda AMBROSIO, FIGUEROA [address] [place] [address], [phone], [facility] 10/16/2023 16:56:33 Xr, Hip + Pelvis, Unilateral, 2 Or 3 View : PRELIMINARY INTERPRETATION - NOT A FINAL REPORT RESPONSIBLE UNDERTAKER HELPER: Krystal Plascencia M.D. (resident) EXAMINATION: XR HIP 2-3 VW LEFT (PELVIS OPTIONAL) CLINICAL INDICATION: Left hip pain TECHNIQUE: AP view of the pelvis with 2 additional views of the left hip. COMPARISON: XR HIP 2-3 VW LEFT (PELVIS OPTIONAL) dated 01/04/2023 FINDINGS: The bones are diffusely demineralized. The left femoroacetabular joint is normal in alignment with mild joint space narrowing and osteophyte formation, slightly progressed since 01/04/2023. Unchanged enthesophyte of the greater trochanter. There is anatomic alignment status post total right hip arthroplasty. The hardware is normal in appearance. There are degenerative changes of the partially imaged lower lumbar spine. The bones of the pelvis are intact. Nonobstructive bowel gas pattern. The soft tissues are normal. IMPRESSION: Mild osteoarthritis of the left hip, slightly progressed since 01/04/2023. Dictated: 05/13/2024 10:57 AM Report ID: [id number] Exam performed at [facility]. Preliminary result reported in external system at [facility] on 05/13/2024 10:57 Reported By: Krystal Plascencia M.D. (resident) ([id number]) Letitia villalobos MA - [facility] 06/16/2024 09:42:14 Xr, Hip + Pelvis, Unilateral, 2 Or 3 View : RESPONSIBLE UNDERTAKER HELPER: Ramon Valentin M.D. EXAMINATION: XR HIP 2-3 VW LEFT (PELVIS OPTIONAL) CLINICAL INDICATION: Left hip pain TECHNIQUE: AP view of the pelvis with 2 additional views of the left hip. COMPARISON: XR HIP 2-3 VW LEFT (PELVIS OPTIONAL) dated 01/04/2023 FINDINGS: The bones are diffusely demineralized. The left femoroacetabular joint is normal in alignment with mild joint space narrowing and osteophyte formation, slightly progressed since 01/04/2023. Unchanged enthesophyte of the greater trochanter. There is anatomic alignment status post total right hip arthroplasty. The hardware is normal in appearance. There are degenerative changes of the partially imaged lower lumbar spine. The bones of the pelvis are intact. Nonobstructive bowel gas pattern. The soft tissues are normal. IMPRESSION: Osteoarthritis of the left hip, slightly progressed since 01/04/2023. I, the attending physician, attest that I have performed and/or supervised the resident for the jurado and critical components of this procedure. I have personally reviewed the images pertinent to this examination and agree with the interpretation. Dictated: 05/13/2024 11:01 AM Report ID: [id number] Exam performed at [facility]. Report signed in external system at [facility] on 05/13/2024 11:01 Reported By: Krystal Plascencia M.D. (resident) ([id number]) Signed By: Ramon Valentin M.D. (REIR) Letitia villalobos MA - [facility] 06/16/2024 09:42:14 Problems Name Problem SNOMED Code Status Onset Date Resolution Date Notes Provider Name and Address Organization Details Recorded Time Osteoarth ritis 483125495 Active 2014 Recorded 5 1:03PM by Laurie Pierce, Office Visit; Promoted; acuity set as * Not Available [facility] 7 02:45:09 Hypertens hesham disorder 82716788 Active 2014 Recorded 5 1:41PM by Irlanda Porter, Office Visit; Promoted; acuity set as * Not Available [facility] 7 02:45:09 Spondylos is 9769606 Active 2014 Recorded 5 1:20PM by FIGUEROA HAIDER, Office Visit; Promoted; acuity set as * Not Available [facility] 7 02:45:09 Lumbosacr al radiculop athy 9848905 Active 2014 Recorded 5 1:20PM by FIGUEROA HAIDER, Office Visit; Promoted; acuity set as * Not Available [facility] 7 02:45:09 Implantat ion of joint prosthesi s Active 2014 Recorded 5 1:20PM by FIGUEROA HAIDER, Office Visit; Promoted; acuity set as * Not Available [facility] 7 02:45:09 Aftercare Active 2014 Recorded 5 1:20PM by FIGUEROA HAIDER, Office Visit; Promoted; acuity set as * Not Available [facility] 7 02:45:09 Heart murmur 53460912 Active 2014 Recorded 5 1:03PM by Laurie Pierce, Office Visit; Promoted; acuity set as * Not Available [facility] 7 02:45:20 Wears glasses 182146210 Active 2014 Recorded 5 1:03PM by Laurie Pierce, Office Visit; Promoted; acuity set as * Not Available [facility] 7 02:45:20 Pain of hip region 13956766 Active 2015 Recorded 6 5:02PM by FIGUEROA HAIDER, Historica l Summary; Promoted; acuity set as * Not Available [facility] 7 02:45:09 Lumbar spondylol isthesis 31166276982 9102 Active 2022 FIGUEROA HANNAH [address] [place] [address], [phone] , [facility] 3 08:52:26 Spinal stenosis of lumbar region 24756501 Active 2022 FIGUEROA HANNAH [address] [place], [address] , [facility] 3 08:52:27 Problem Notes None recorded. Procedures Surgical History Date Name Laterality Status Provider Name and Address Organization Details Recorded Time 02/12/20 23 Ultrasound guided Joint injection shoulder completed FIGUEROA HANNAH [address] [place], [address], [facility] 02/11/2023 13:55:48 01/01/20 23 Joint Replacement completed Butch Camp [facility] 05/09/2023 08:44:31 05/10/20 21 PPE completed Tee Mascorro [facility] 05/10/2021 11:23:34 05/10/20 21 CML Euflexxa injection (Left) completed FIGUEROA MEJIA [address] [place], [address], [facility] 05/10/2021 12:57:28 05/03/20 21 PPE completed Jenn Osborne [facility] 05/03/2021 11:56:18 05/03/20 21 CML Euflexxa injection (Left) completed FIGUEROA MEJIA [address] [place], [address], [facility] 05/09/2021 10:00:59 04/26/20 21 PPE completed Arik White [facility] 04/26/2021 11:31:13 04/26/20 21 CML Euflexxa injection (Left) completed FIGUEROA HANNAH [address] [place], [address], [facility] 04/28/2021 22:04:01 03/08/20 21 PPE completed Kalpana Rae [facility] 03/08/2021 11:17:34 Wrist Surgery completed Arik White [facility] 04/26/2021 11:29:35 Wrist Surgery completed Arik White [place] - [facility] 04/26/2021 11:29:29 Imaging Results None recorded. Procedure Notes None recorded. Medical Equipment None Reported. Allergies Allergen ID Allergen Name Allergen Category Reaction Reaction Severity Criticality Documentation Date Start Date Code Code System Note Provider Name and Address Organization Details Recorded Time 337592 shellfish derived food,medi cation Not available Not available Not available 12/10/20162014 Comme nt: Recor ded 09/16 1:03P M by Torey Schmidt rd, Offic e Visit ; Promo antolin; Brenda demarco ce:*; Not Available [facility] 19:20:03 [id number] Product containin g penicilli n (product) medicatio n Not available Not available Not available 12/10/20162014 71415 8001 SNOMED Comme nt: Recor ded 09/16 1:03P M by Torey Schmidt rd, Offic e Visit ; Promo antolin; Brenda demarco ce:*; Not Available [facility] 7 19:20:03 Medications Name Sig Start Date Stop Date Status Note LastModified by Organization Details LastModified Time prednison e 10 mg tablet 09/20 completed Not Available Not Available Not Available atorvasta tin 20 mg tablet TAKE 1 TABLET BY MOUTH EVERY DAY active Not Available Not Available No t Available clindamyc in HCl 300 mg capsule TAKE 2 CAPSULES BY MOUTH 30 MIN PRIOR TO DENTAL WORK active Not Available Not Available No t Available cetirizin e 10 mg tablet TAKE 1 TABLET BY MOUTH EVERY DAY 05/13 completed Not Available Not Available Not Available azithromy susanna 250 mg tablet TAKE DIRECTED active Not Available Not Available No t Available valacyclo vir 1 gram tablet TAKE 1 TABLET BY MOUTH TWICE DAILY UNTIL ALL TAKEN active Not Available Not Available No t Available prednison e 5 mg tablet 7 tablets p.o. q.d. x1 day, then decrease d by one tablet each day 05/13 completed Not Available Not Available Not Available pimecroli mus 1 % topical cream APPLY EVERY DAY TWICE A DAY FACE WHEN NEEDED active Not Available Not Available No t Available clobetaso l 0.05 % topical cream APPLY TOPICALL Y EVERY MORNING AND EVENING TO RASH ON HANDS, CHEST, BACK, LEGS + ARMS WHEN NEEDED active Not Available Not Available No t Available clindamyc in HCl 150 mg capsule 05/13 completed Not Available Not Available Not Available propranol ol 10 mg tablet TAKE 1 TABLET BY MOUTH EVERYDAY AT BEDTIME active Not Available Not Available No t Available benzonata te 100 mg capsule 05/13 completed Not Available Not Available Not Available clotrimaz ole-betam ethasone 1 %-0.05 % topical cream active Not Available Not Available Not Available prednison e 50 mg tablet 01/04 completed Not Available Not Available Not Available Multi-Vit uriostegui/Mine rals tablet daily active Recorded 09/16/20 15 1:03PM by Laurie Pierce, Office Visit Not Available Not Available Not Available lisinopri l 5 mg tablet TAKE 1 TABLET BY MOUTH EVERY DAY active Not Available Not Available No t Available mupirocin 2 % topical ointment APPLY EVERY MORNING AND EVERY EVENING TOPICALL Y TO BUMPS AROUND THE LEFT EYE DURING OUTBREAK FOR 7 TO 10 DAYS 05/13 completed Not Available Not Available Not Available estradiol 0.01% (0.1 mg/gram) vaginal cream INSERT 1 GRAM VAGINALL Y 3 TIMES A WEEK active Not Available Not Available No t Available methylpre dnisolone 4 mg tablets in a dose pack 09/20 completed Not Available Not Available Not Available hydroxyzi ne HCl 10 mg tablet TAKE 1 TABLET BY MOUTH AT SUPPER AND AT BEDTIME NEEDED FOR ITCHING active Not Available Not Available No t Available fluticaso ne propionat e 50 mcg/actua tion nasal spray,eleuterio pension USE TWICE IN EACH NOSTRIL DAILY active Not Available Not Available No t Available doxycycli ne hyclate 100 mg tablet 04/26 completed Not Available Not Available Not Available neomycin 3.5 mg/g-poly myxin B 10,000 unit/g-de xameth 0.1 % eye oint APPLY TO THE UPPER EYELID OF THE RIGHT EYE AT BEDTIME FOR ONE WEEK 05/13 completed Not Available Not Available Not Available glucosami ne-chondr oitin 1,500 mg -1,200 mg/30 mL oral liquid daily active Recorded 09/16/20 15 1:03PM by Laurie Pierce, Office Visit Not Available Not Available Not Available Euflexxa 10 mg/mL (mw 2.4-3.6 million) intra-art icular syringe 01/04 completed Not Available Not Available Not Available aspirin daily 05/13 completed Recorded 09/16/20 15 1:03PM by Laurie Pierce, Office Visit Not Available Not Available Not Available cranberry active Recorded 09/16/20 1:43PM by Robyn Porter, Office Visit Not Available Not Available Not Available ibuprofen as needed active Recorded 09/16/20 1:03PM by Laurie Pierce, Office Visit Not Available Not Available Not Available Fluticaso ne Propionat e (Nasal) as needed active Recorded 09/16/20 1:03PM by Laurie Pierce, Office Visit Not Available Not Available Not Available Zyrtec as needed active Recorded 09/16/20 1:03PM by Laurie Pierce, Office Visit Not Available Not Available Not Available Vagifem two times a week active Recorded 09/16/20 1:03PM by Laurie Pierce, Office Visit Not Available Not Available Not Available Tylenol Arthritis Pain as needed active Recorded 09/16/20 15 1:03PM by Laurie Pierce, Office Visit Not Available Not Available Not Available Gavilyte- C 240 gram-22.7 2 gram-6.72 gram-5.84 gram oral solution TAKE 4,000 ML BY MOUTH 1 TIME FOR 1 DOSE. DRINK 8 OZ EVERY 10-15 MINUTES UNTIL SOLUTION IS GONE active Not Available Not Available No t Available Calcium-V itamin D 600 mg-10 mcg (400 unit) tablet daily 05/13 completed Recorded 09/16/20 15 1:03PM by Laurie Pierce, Office Visit Not Available Not Available Not Available Monovisc 88 mg/4 mL intra-art icular syringe 01/04 completed Not Available Not Available Not Available Hymovis 24 mg/3 mL intra-art icular syringe To be injected once a week by elías wang 01/04 completed Not Available Not Available Not Available Vitals Date Recorded Body height Body mass index (BMI) Body weight Pain severity - 0-10 verbal numeric rating [Score] - Reported Provider Name and Address Organization Details Last Updated DateTime 01/07/2025 154.94 cm 28.3 kg/m2 51866.86 g 7 Sirisha Lazo [facility] 01/07/2025 10:27:01 Date Recorded Body height Body mass index (BMI) Body weight Pain severity - 0-10 verbal numeric rating [Score] - Reported Provider Name and Address Organization Details Last Updated DateTime 02/11/2023 154.94 cm 28.9 kg/m2 52652.63 g 4 Rabia German [facility] 02/11/2023 13:15:11 Date Recorded Body height Body mass index (BMI) Body weight Pain severity - 0-10 verbal numeric rating [Score] - Reported Provider Name and Address Organization Details Last Updated DateTime 05/09/2023 154.94 cm 28.3 kg/m2 69998.86 g 4 Butch Camp [facility] 05/09/2023 08:44:19 Date Recorded Pain severity - 0-10 verbal numeric rating [Score] - Reported Provider Name and Address Organization Details Last Updated DateTime 05/13/2024 6 Babs Bella [facility] 05/13/2024 10:29:44 Date Recorded Body height Body mass index (BMI) Body weight Provider Name and Address Organization Details Last Updated DateTime 05/13/2024 154.94 cm 28.3 kg/m2 57450.86 g Kandi Houston [facility] 05/13/2024 10:15:50 Date Recorded Body height Body mass index (BMI) Body weight Pain severity - 0-10 verbal numeric rating [Score] - Reported Provider Name and Address Organization Details Last Updated DateTime 09/20/2023 154.94 cm 28.3 kg/m2 25379.86 g 8 Rabia German [facility] 09/20/2023 13:57:50 Social History Question Answer Notes LastModified by Organizat ion Details LastModified Time Tobacco Smoking Status Former Smoker Stefani villalobos [facility] 03/25/2019 15:34:13 Are You Deaf Or Do You Have Serious Difficulty Hearing? No Information not available 05/09/2023 Which Of Your Hands Is Dominant? Right Information not available 05/09/2023 What Was The Date Of Your Most Recent Tobacco Screening? 03/25/2019 Information not available 05/09/2023 How Much Tobacco Do You Smoke? No Information not available 05/09/2023 Has Tobacco Cessation Counseling Been Provided? No Information not available 05/13/2024 Sex: Unknown Functional Status Question Answer Note LastModified by Organizat ion Details LastModified Time Do you use any illicit or recreational drugs? No Information not available 05/13/2024 Do you or have you ever used any other forms of tobacco or nicotine? No Information not available 05/13/2024 What is your level of alcohol consumption? Occasional Information not available 05/09/2023 What is your occupation? Retired teacher Information not available 05/09/2023 What is your exercise level? Moderate Information not available 05/09/2023 Mental Status None recorded. Family History Relationship Description Onset Age of this Age Resolved Age Notes LastModified by Organization Details LastModified Time Mother Arthritis 40 79 Not available 05/09/2023 08:44:21 Mother Hypertensive disorder 52 79 Not available 2022 08:44:21 Brother Arthritis Not availa ble 03/25/2019 15:33:47 Brother Heart disease 56 Not available 2022 08:44:21 Sister Arthritis Not availab le 03/25/2019 15:33:47 Sister Heart disease 55 [email or web address] Not available 2022 13:15:44 Father Arthritis 40 68 Not available 05/09/2023 08:44:21 Father Heart disease 44 68 Not available 2022 08:44:21 Medical History Condition Response Coronary Artery Disease N Dyslipidemia N Gout N Artificial Joints N Thyroid Problems N Lung Disease N Depression N Pacemaker N Anemia N Back Pain Y Hearing Impairment N Anesthesia Complications N Heart Attack ([place]) N Headaches/Migraines N Deep Vein Thrombosis N Anxiety Disorder N Diabetes N Bleeding Disorder N Arthritis Y Seizures/Epilepsy N Cardiac Stent N Blood Clot N Tuberculosis N AIDS/HIV N Inflammatory Bowel Disease N Acid Reflux (GERD) N Cancer N Stroke N Substance Abuse N Peripheral Vascular Disease N Asthma/COPD N Wears Glasses/Contacts N Hepatitis N Heart Disease N Organ Transplant N Rheumatoid Arthritis N Pulmonary Embolism N Fibromyalgia N Hypertension Y Stomach Ulcer N Osteoporosis N Kidney Disease N Gynecological HistoryNo gynecological history recorded. Obstetrics History GPAL:G 0 P 0 0 0 0 Immunizations Vaccine Type Date Status Note Provider Nam e and Address Organization Details Recorded Time COVID-19, mRNA, LNP-S, PF, 30 mcg/0.3 mL dose 12/28/2020 [facility] 11:16:39 COVID-19, mRNA, LNP-S, PF, 30 mcg/0.3 mL dose 12/07/2020 [facility]/08[facility]2021 11:16:57 Past Encounters Encounter ID Performer Location Encounter Start Date Encounter Closed Date Diagnosis/Indication Diagnosis SNOMED-CT Code Diagnosis ICD10 Code Diagnosis IMO Codes Diagnosis Note [id number] FIGUEROA HANNAH [place] [address] [place] [address] 03/25/2019 14:43:02 03/27/2019 13:13:01 Lumbosacral radiculitis 55933692 M54.17 Cervical radiculopathy 14263401 M54.12 [id number] FIGUEROA HANNAH [address] [address] 03/08/2021 10:47:56 03/14/2021 16:02:39 Osteoarthritis of left knee joint 9464362219 20288 M17.12 [id number] FIGUEROA HANNAH [place] [address] [place] [address] [address] 04/26/2021 10:33:54 05/01/2021 15:07:53 Osteoarthritis of knee 843983685 M17.0 [id number] FIGUEROA MEJIA [address] [address] 05/03/2021 11:09:33 05/09/2021 12:27:23 Osteoarthritis of left knee joint 6262111760 85801 M17.12 [id number] FIGUEROA MEJIA [place] [address] [place] [address] [place] [id number] 05/10/2021 11:06:46 05/11/2021 16:03:39 Arthritis of left knee joint 3977323030 442593 M13.862 [id number] FIGUEROA HANNAH [address],[place] [address] [place] [id number] 01/04/2023 12:28:42 01/15/2023 14:26:16 Osteoarthritis of left hip joint 7499251768 76718 M16.12 Localized, primary osteoarthritis of the shoulder region 829480263 M19.019 Tendinitis of left rotator cuff 8340906158 3300253 M67.814 Lumbar radiculopathy 128 317772 M54.16 [id number] FIGUEROA HANNAH [address],[place] [address] [place] [address] 02/11/2023 13:09:20 02/11/2023 15:40:04 Localized, primary osteoarthritis of the shoulder region 386922676 M19.019 Tendinitis of left rotator cuff 0885392124 0820263 M67.814 [id number] FIGUEROA HANNAH [address],[place] [address] [place] [address] 05/09/2023 07:48:26 05/09/2023 16:26:12 Lumbar spondylolisthesis 6232589111 03471 M43.16 Spinal lianna nosis of lumbar region 17590054 M48.062 [id number] FIGUEROA HANNAH [address],[place] [address] [place] [address] 09/20/2023 13:11:21 09/20/2023 15:42:59 Cervical radiculopathy 70970963 M54.12 [id number] FIGUEROA HANNAH [address],[place] [address] [place] [address] 05/13/2024 10:07:13 05/14/2024 11:18:26 Lumbar radiculopathy 464863110 M54.16 [id number] FIGUEROA HANNAH [address],[place] [address] [place] [id number] 01/07/2025 10:17:32 01/07/2025 15:03:42 Lumbosacral spondylosis without myelopathy 07106335 M47.817 Pain of le ft hip joint 5936612106 37552 M25.552 Health Concerns Section Related Observation LastModified by Organization Nicky ls LastModified Time None Recorded Concern Status LastModified by Organization Details LastModified Time None Recorded Advance Directives Directive None Recorded Payers Insurance Date Sequence Insurance Name Policy Number Policy Mantilla Covered Member ID Mantilla Member ID Guarantor Name 03/31/2019 1 BILL [id number] Kaleigh Elder [id number] Kaleigh Elder Notes Date Note Type Note Provider Name and Address Organization Details Recorded Time 02/11/2023 text/html Kaleigh is here for a steroid injection to the left subacromial space and glenohumeral joint for treatment of rotator cuff tendinitis with shoulder stiffness. The risk benefits were reviewed and she would like to proceed. FIGUEROA HANNAH [address] [place], [address], [facility] 02/11/2023 13:57:06 05/09/2023 text/html The patient has requested a telemedicine consult. I received consent via patient portal to go over her history and physical exam by telemedicine. Kaleigh has had issues with her lower back for years. Recently she has been experiencing pain that radiates from the left lower back across to the right. She has intermittent radicular pain to the left buttock. She previously had anterior thigh pain but more recently it is traveled posteriorly. She denies paresthesias and weakness. Her pain level ranges from mild to severe. On the severe days she has trouble walking distances though at times she is able to push through. She can experience pain when standing from a seated position and when getting out of a car. Prior treatment has included physical therapy. She recently had an MRI of her lumbar spine which we will review today. FIGUEROA HANNAH [address] [place], [address], [facility] 05/09/2023 08:52:38 09/20/2023 text/html Kaleigh is a pleasant 68-year-old female presents today for assessment of her neck and upper back. She states she has had some muscle tension in the upper back in the past. Over time this has progressively worsened. For the past 3 to 4 months she has been experiencing a dull, achy, burning sensation about the neck and upper back. She reports twinges of discomfort in the upper arm that can extend to the palm of her left hand. She does not have right-sided radiating pain. She reports intermittent tingling. She denies weakness but states the arm feels tight. She has increased pain with activity. She has pain with rotation and sidebending primarily to the left. She was in physical therapy. She had to discontinue exercises due to pain. When she tried to resume therapy, symptoms recurred. She has been taking ibuprofen with temporary relief of pain. She has not had recent diagnostic testing for the neck or upper back. FIGUEROA HANNAH [address] [place], [id number], [facility] 09/24/2023 12:34:44 05/13/2024 text/html Kaleigh is here for reassessment of her lumbar spine. She has a history of lumbar facet arthritis and stenosis. She presents today reporting persistent pain about the left lateral buttock that radiates to the lateral left lower extremity and what appears to be the L5 nerve root distribution. She states she might have numbness on occasion, but nothing consistent. She reports a little bit of weakness of her legs when climbing stairs.. She denies bowel and bladder dysfunction. She has increased pain when walking. She feels better when seated. Recent treatment includes physical therapy. She had a lumbar MRI in 2022 at [facility]. FIGUEROA HANNAH [address] [place] [address], [id number], [facility] 05/13/2024 16:31:43 01/07/2025 text/html Kaleigh is a pleasant 69-year-old female who presents today for an assessment of her left hip. She states she has been experiencing intermittent left hip pain for a while. She had a recent flare while on vacation after doing a lot of walking. The pain is located about the left buttock and lateral hip. It can extend along the ITB. She does not have groin pain. She does not have distal radicular pain. She has occasional tingling in the left leg. She does not have right-sided symptoms. She does not have any real back pain at this time. She has increased pain with prolonged walking. She feels weak when walking up and down stairs. There are no specific relieving factors. She states she stretches nightly. She has not had recent PT. She denies a history of injury or surgery to the left hip. She has a history of a right total hip replacement. She also has a history of lumbar arthritis and stenosis. FIGUEROA HANNAH [address] [place] [address], [id number], [facility] 01/10/2025 21:23:25 OBGyn Episode No OBEpisode recorded.
== END 2025-08-18 14:36 | disposition home or self-care (01) ==
LOC: HO.HMGAL 14:34
PROVIDERS: PCP Internal Medicine; Visit Provider Registered Nurse Emergency
DX: J30.89 Other allergic rhinitis (principal)
CPT/HCPCS: 95117; 95165

== ENCOUNTER 2025-08-30 12:57 | Outpatient (AMB) | payer MEDICARE, OTHER, SELFPAY | END 2025-08-30 12:58 | disposition home or self-care (01) | LOC: HO.HMGAL 12:57 | PROVIDERS: PCP Internal Medicine; Visit Provider Registered Nurse Emergency | DX: J30.89 Other allergic rhinitis (principal) | CPT/HCPCS: 95117; 95165 ==

== ENCOUNTER 2025-09-13 15:32 | Outpatient (AMB) | payer MEDICARE, OTHER, SELFPAY ==
--- OUTSIDE RECORDS SUMMARY | 2025-08-31 06:30 | XMS_ITS | Continuity of Care Document ---
Author Organization [facility] Address [address] [place] [address] Phone Care Team Providers Care Binder Selector Name Role Phone Stepan CALVILLO, RVT, RPBRETT, Zachary Palma U navailable Allergies, Adverse Reactions, Alerts Substance Reaction Status Criticality shellfish derived Active No Informa tion PENICILLIN Active No Information Medications Medication Instructions Dosage Effective Dates (start - stop) Status Comments lisinopril 5 mg tablet - Act hesham atorvastatin 20 mg tablet - Active ESTRADIOL (unknown strength) Not Available - Active Procedures Procedure Date Duplex Scan-extrem Veins; Uni/ CT & MA N Ultrason Guidan Needle Bx-rad- CT & MA N Inj Sclerosing Solution; Sngl- CT & [place] N Office/Outpt E&M Established 15 Mins- CT & [place] Surgical Stockings CVR Reveal Thigh High Duplex Scan-extrem Veins; Comp- CT & MA Office/Outpt E&M Established 15 Mins- CT & MA Duplex Scan-extrem Veins; Uni/ CT & [place] J Office/Outpt E&M Established 15 Mins Oct Duplex Scan-extrem Veins; Uni/ Duplex Scan-extrem Veins; Uni/ Ultrason Guidan Needle Bx-rad Nov-30-202 3 Inj Sclerosing Solution; Sngl 3 Office/Outpt E&M Established 10 Mins Jul Duplex Scan-extrem Veins; Uni/ 23 Inj Scleros Solut; Mx Veins 1 3 Ultrason Guidan Needle Bx-rad 3 Duplex Scan-extrem Veins; Uni/ 23 Varithena, Single Truncal Vein Endovenous Laser, 1st Vein Endovenous laser vein addon Offic/outpt E&m Estab 5 Min Trial - Tele medicine Duplex Scan-extrem Veins; Comp Office/Oupt E&M New Pt 45 Mins Advance Directives Directive Yes / No Effective Date File Name No Information Encounters Encounter Description Practice Location Reason(s) For Visit Diagnoses Date Provider Providers Copied on Encounter [facility], [address] [place] [address] Dr Kuhn [address] [address], [id number], tel:[phone] [facility] Encounter for follow-up examination after completed treatment for conditions other than malignant neoplasmVarico se veins of right lower extremity with pain 5 Stepan CALVILLO RVT, JOHN Sharma. [address] [place] [address], [facility] [place], [id number] , [place]. tel:[phone] Referring Provider: Jaxson Fernandez, [address] [place] [address] [place], [address]. tel:[phone] [facility], [address] [place] [address] Dr [facility]uhn [facility] [address], [id number], tel:[phone] [facility] Varicose veins of right lower extremity with other complications 5 Stepan CALVILLO RVT, JOHN Sharma. [address] [place] [address], [facility] [place], [id number] , [place]. tel:[phone] Referring Provider: Jaxson Fernandez, [address] [place], [place] [address], [address]. tel:[phone] Office/Outpt E&M Established 15 Mins- CT & [place] [facility], [address] [place] [address] Dr Kuhn [address] [address], [id number], tel:[phone] [facility] [place] [facility] [place] Varicose veins of right lower extremity with other complicationsP ruritus, unspecifiedEss ential (primary) hypertension Jun- 5 Stepan CALVILLO RVT, JOHN Sharma. [address] [place] [address], [place] [address], [facility] [place] [place], [id number] , [place]. tel:[phone] Referring Provider: Jaxson Stanton MD R, [address] [place] [address], [place], [address]. tel:[phone] [place] [facility], [address] [place] [address] Dr [address] [place] [address] [place] C[place], [id number], [place] tel:[phone] [facility] [place] [facility] [place] Chronic venous hypertension (idiopathic) with other complications of bilateral lower extremity Jun- 5 Stepan CALVILLO RVT, JOHN Sharma. [address] [place] [address], [facility] [place], [id number] , [place]. tel:[phone] Referring Provider: Jaxson Stanton MD R, [address] [place] [address], [place], [address]. tel:[phone] Office/Outpt E&M Established 15 Mins- [place] & [place] [facility], [address] [place] [address] Dr Kuhn [address] [address], [id number], [place] tel:[phone] [facility] [place] [facility] [place] Essential (primary) hypertensionVe nous insufficiency (chronic) (peripheral)Ne vus, non-neoplastic 4 Stepan CALVILLO RVT, JOHN Sharma. [address] [place] [address], [place] [address], [facility] [place], [id number] , [place]. tel:[phone] Referring Provider: Jaxson Stanton MD R, [facility] [address], [place], [address]. tel:[phone] [facility], [address] [place] [address] Dr Kuhn [address], [id number], [place] tel:[phone] CVR - [facility] Encounter for follow-up examination after completed treatment for conditions other than malignant nePain in right leg 4 Stepan CALVILLO RVT, JOHN Sharma. [address] [place] [address], [address], [place], [id number] , [place]. [phone] Referring Provider: Jaxson Stanton MD R, [address], [place], [address]. tel:[phone] Office/Outpt E&M Established 15 Mins [facility], [address] [place] [address] Dr Kuhn [address] 1000[place], [id number], [place] tel:[phone] [facility] Chronic venous hypertension (idiopathic) without complications of bilateral lower extremityEssen tial (primary) hypertension 4 Stepan CALVILLO RVT, JOHN Sharma. [address] [place] [address], [place] [address], [place], [id number] , [place]. tel:[phone] Referring Provider: Jaxson Stanton MD R, [facility] [address], [place], [address]. tel:[phone] [facility], [address] [place] [address] Dr Kuhn [address] 1000[place], [id number], [place] tel:[phone] CVR - [facility] Encounter for follow-up examination after completed treatment for conditions other than malignant neVaricose veins of right lower extremity with pain 4 Stepan CALVILLO RVT, JOHN Sharma. [address] [place] [address], [facility], [place], [id number] , [place]. tel:[phone] Referring Provider: Jaxson Stanton MD R, [address] [place] [address], [place], [address]. tel:[phone] [facility], [address] [place] [address] Dr Kuhn [address] 1000[place], [id number], [place] tel:[phone] [facility] [facility] [place] Encounter for follow-up examination after completed treatment for conditions other than malignant neoplasmVarico se veins of right lower extremity with pain 3 Herbert HATCHT JOHN Bobby. [address] [place] [address], [place] [address], [facility] [place], [address], [place]. tel:[phone] Referring Provider: Jaxson Stanton MD R, [facility] [address], [place], [address]. tel:[phone] [place] [facility], [address] [place] [address] Dr Kuhn 1000Suite [place] Cage [place], [id number], [place] tel:[phone] [facility] [facility] [place] Varicose veins of right lower extremity with inflammation 3 Stepan CALVILLO RVT, JOHN Sharma. [address] [place] [address], [place], [id number] , [place]. tel:[phone] Referring Provider: Jaxson Stanton MD R, [address] [place] [address], [place], [address]. tel:[phone] Office/Outpt E&M Established 10 Mins [facility], [address] [place] [address] Dr Kuhn [address]Suite [place] Cage [place], [id number], [place] tel:[phone] [facility] [place] [facility] [place] Varicose veins of right lower extremity with other complicationsE ssential (primary) hypertension 3 Stepan CALVILLO RVT, JOHN Sharma. [address] [place] [address], [place] [address], [place], [id number] , [place]. tel:[phone] Referring Provider: Jaxson Fernandez, [address] [place] [address], [place], [address]. tel:[phone] [facility] MD MURPHY, [address] [place] [address] Dr Kuhn [address] 1000[place], [id number], [place] tel:[phone] [facility] Encounter for follow-up examination after completed treatment for conditions other than malignant neoplasmVarico se veins of right lower extremity with pain Oct-3 0- 3 Herbert Bobby. [address] [place] [address], [place], [address], [place]. tel:[phone] Referring Provider: Jaxson Stanton MD R, [address] [place] [address], [facility] [place], [address]. tel:[phone] [facility], [address] [place] [address] [facility] [address], [id number], [place] tel:[phone] [facility] Chronic venous hypertension (idiopathic) with inflammation of right lower extremity Oct-0 3 Stepan CALVILLO RVT, JOHN Sharma. [address] [place] [address], [place], [place], [id number] , [place]. tel:[phone] Referring Provider: Jaxson Stanton MD R, [address] [place] [address] [place], [address]. tel:[phone] [facility], [address] [place] [address] [address], [id number], [place] tel:[phone] [facility] Encounter for follow-up examination after completed treatment for conditions other than malignant neVaricose veins of right lower extremity with pain Oct-0 2 3 Herbert Bobby. [address] [place] [address], [place], [address], [place]. tel:[phone] Referring Provider: Jaxson Stanton MD R, [address] [place] [address] [place], [address]. tel:[phone] [facility], [address] [place] [address] [address], [id number], [place] tel:[phone] [facility] Chronic venous hypertension w inflammation of r low extrem Sep-2 3 Stepan CALVILLO RVT, JOHN Sharma. [address] [place] [address], [place], [id number] , [place]. tel:[phone] Referring Provider: Jaxson Stanton MD R, [address] [place] [address], [place], [address]. tel:[phone] [facility], [address] [place] [address] Dr Kuhn [facility] [address], [id number], [place] tel:[phone] [facility] Chronic venous hypertension w inflammation of r low extrem Sep-2 3 Stepan CALVILLO, RVT, JOHN Sharma. [address] [place] [address], [facility] [place], [id number] , [place]. tel:[phone] Referring Provider: Jaxson Stanton MD R, [address] [place] [address], [place], [address]. tel:[phone] Offic/outpt E&m Estab 5 Min Trial - Telemedicine [facility], [address] [place] [address] Dr Kuhn [address] [address], [id number], [place] tel:[phone] [facility] [place] [facility] [place] Chronic venous htn w oth comp of bilateral low extrm 3 Herbert CALVILLO FACS RVT JOHN Bobby. [address] [place] [address], [place], [address], [place]. tel:[phone] Referring Provider: Jaxson Fernandez, [address] [place] [address], [place], [address]. tel:[phone] [facility], [address] [place] [address] Dr Kuhn [facility] [address], [id number], [place] tel:[phone] [facility] [place] [facility] [place] Varicose veins of bilateral lower extremities with pain 3 Herbert CALVILLO FACS HOLDENT JOHN Bobby. [address] [place] [address], [place], [address], [place]. tel:[phone] Referring Provider: Jaxson Fernandez, [address] [place], [place] [address], [address]. tel:[phone] Office/Oupt E&M New Pt 45 Mins [facility], [address], [place], [id number], [place] tel:[phone] [facility] Varicose veins of bi low extrem w oth complicationsP ain in right lower legPain in left lower legEssential (primary) hypertensionFl ail joint, unspecified jointPain in right legPain in left leg 3 Stepan CALVILLO, RVT, RPVI Zachary. [address] [facility], [address], [place], [id number] , [place]. tel:[phone] Referring Provider: Jaxson Stanton MD R, [address] [facility] [address] [facility], [place], [address]. tel:[phone] Family History Family Member Type Diagnosis Age At Onset No Information Payers Payer name Insurance type Covered green party ID Authoriza tirama(s) Medicare BALTAZAR ROMAN [id number] [facility] CI [id number] Social History Type Description Quantity Date Captured Comments Sex Female Smoking Status No Information Chief Complaint And Reason For Visit No [...] Information Instructions Date Instruction Additional Infor marky Giving Encouragement to exercise Related to Body mass index (BMI) 28.0-28.9, adult Patient education booklet given Related to Varicose veins of right lower extremity with other complications Compression stocking usage as conservative measure Related to Varicose veins of right lower extremity with other complications Lifestyle education Related to B veronica mass index (BMI) 28.0-28.9, adult Diet education [...] to Body mass index (BMI) 28.0-28.9, adult Marvel-10-2024 Diet education Related to Body mass index [...]
--- OUTSIDE RECORDS SUMMARY | 2025-09-13 18:28 | XMS_ITS | Clinical Summary ---
Author Organization [address] Address [address] [place] [address] Phone Care Team Providers Care House Officer Name Role Phone Jaxson Stanton MD Primary Care Provider [phone] Allergies Active Allergy Reactions Criticality Noted Date [...] (one) time each day. Active glucos sul 5ISe-wla-yhvpy- C-Mn (Glucosamine Chondroitin) 550-30-1 mg capsule Take [...] (one) time each day before breakfast. Active eyrv-umsc-fjb-y ad-siu-codg-hor [phone] mg tablet Take by mouth. Activ e [...] Test 09/17/2024 Depression Screening 10/14/2024 COVID-19 Vaccine ( season) 2025 08/10/2024, 07/31/2023, 07/09/2022, Additional history [...] this topic Medical Devices Implanted Type Area Forester Silviculture Device Identifier Shelf Expiration Date Model / Serial / Lot Implants Implants Right: Hip Procedures Procedure Name Priority Date/Time Associated Diagnosis Comments COLONOSCOPY Routine 01/05/2025 11:09 AM EDT Personal history of colon polyps, unspecified Family history of colon polyps, unspecified Colon cancer screening from Last 3 Months or Most Recently Relevant to Health Maintenance Results * COLONOSCOPY Anesthesia - MAC; [facility] ENDOSCOPY (01/05/2025 11:09 AM EDT) Anatomical [...] pathology results. Narrative 01/05/2025 11:11 AM EDT [facility] Patient Name: Kaleigh Elder Procedure [...] not prolapse). Procedure Code(s): --- Professional --- 03620, Colonoscopy, flexible; with removal of tumor(s), polyp(s), or other lesion(s) by snare technique Diagnosis Code(s): --- Professional --- Z86.010, Personal history of colonic polyps D12.0, Benign neoplasm of cecum D12.2, Benign neoplasm of ascending colon D12.3, Benign neoplasm of transverse colon (hepatic flexure or splenic flexure) CPT copyright 2020 [employer]. All rights reserved. The codes documented in this report are preliminary and upon flash welding machine operator review may be revised to meet current compliance requirements. Moriah Doe MD 01/05/2025 11:10:52 AM This report has been signed electronically.Moriah Doe MD Number of Addenda: 0 Note Initiated On: 01/05/2025 10:40 AM Scope In: Scope Out: Endoscopy Department at [facility] - [address] [place] [phone] Procedure Note Moriah Doe MD - 01/05/2025 [facility] Patient Name: Kaleigh Elder Procedure [...] not prolapse). Procedure Code(s): --- Professional --- 83091, Colonoscopy, flexible; with removal of tumor(s), polyp(s), or other lesion(s) by snare technique Diagnosis Code(s): --- Professional --- Z86.010, Personal history of colonic polyps D12.0, Benign neoplasm of cecum D12.2, Benign neoplasm of ascending colon D12.3, Benign neoplasm of transverse colon (hepatic flexure or splenic flexure) CPT copyright 2020 [employer]. All rights reserved. The codes documented in this report are preliminary and upon flash welding machine operator reviewmay be revised to meet current compliance requirements. Moriah Doe MD 01/05/2025 11:10:52 AM This report has been signed electronically.Moriah Doe MD Number of Addenda: 0 Note Initiated On: 01/05/2025 10:40 AM Scope In: Scope Out: Endoscopy Department at [facility] - [address] [place] [phone] IMPRESSION: - The examined portion of the [...] Recently Relevant to Health Maintenance Insurance [facility]ICARE [facility] Care Teams House Officer Relationship Specialty [place] [address] [place] [phone] PCP - General Internal Medicine 08/18/24
== END 2025-09-13 15:33 | disposition home or self-care (01) ==
LOC: HO.HMGAL 15:32
PROVIDERS: PCP Internal Medicine; Visit Provider Registered Nurse Emergency
DX: J30.89 Other allergic rhinitis (principal)
CPT/HCPCS: 95117; 95165

== ENCOUNTER 2025-09-29 14:59 | Outpatient (AMB) | payer MEDICARE, OTHER, SELFPAY ==
--- OUTSIDE RECORDS SUMMARY | 2025-08-31 06:30 | XMS_ITS | Continuity of Care Document ---
Author Organization [facility] Address [address] [place] [address] Dr [address] [place] [address] Phone Care Team Providers Care Overhead Garage Door Hanger Name Role Phone Stepan CALVILLO, MELITON, Zachary LOPEZ Unavailable U navailable Allergies, Adverse Reactions, Alerts Substance Reaction Status Criticality shellfish derived Active No Informa tion PENICILLIN Active No Information Medications Medication Instructions Dosage Dose Quantity Effective Dates (start - stop) Status Indication Fill Status Comments lisinopril 5 mg tablet 3 - Active atorvastatin 20 mg tablet 3 - Active ESTRADIOL (unknown strength) Not Availab le - Active Procedures Procedure Date Duplex Scan-extrem Veins; Uni/ CT & MA N Advance Directives Directive Yes / No Effective Date File Name No Information Encounters Encounter Description Practice Location Reason(s) For Visit Diagnoses Date Provider Encounter Disposition [facility], [address] [place] [address] Dr Kuhn 1000SuKyle montalvo MD, [id number], [place] tel:[phone] [facility] Encounter for follow-up examination after completed treatment for conditions other than malignant neoplasmVaric ose veins of right lower extremity with pain 5 Stepan CALVILLO, MELITON, JOHN Sharma. [address] [facility] [address], [place], [place], [id number] , [place]. tel:[phone] [facility], [address] [place] [address] Dr Kuhn 1000SuKyle montalvo MD, [id number], [place] tel:[phone] [facility] - [place] - [facility] Varicose veins of right lower extremity with other complications 5 Stepan CALVILLO RVT, RPVI Robert. [address] [place] [address], [address], [place], [place], [id number] , [place]. tel: [phone] [facility], [address] [place] [address] Dr Kuhn 1000Suite Kyle Cage MD, [id number], [place] tel:[phone] CVR - [facility] Varicose veins of right lower extremity with other complications Pruritus, unspecifiedEs sential (primary) hypertension 5 Stepan CALVILLO RVT, RPVI Robert. [address] [place] [address], [address], [place], [place], [id number] , [place]. tel: [phone] [facility], [address] [place] [address] Dr Kuhn [address]Suite Kyle Cage [place], [id number], [place] tel:[phone] CVR - [facility] Chronic venous hypertension (idiopathic) with other complications of bilateral lower extremity 5 Stepan CALVILLO RVT, RPVI Robert. [address] [place] [address], [address], [place], [place], [id number] , [place]. tel: [phone] [facility], [address] [place] [address] Dr Kuhn [address] 1000Kyle [place], [id number], [place] tel:[phone] CV[facility] - [place] [facility] [place] Essential (primary) hypertensionV enous insufficiency (chronic) (peripheral)N evus, non-neoplasti c 4 Stepan CALVILLO RVT, RPVI Robert. [address] [place] [address], [address], [place] sim[place], [place], [id number] , [place]. tel:[phone] [facility], [address] [place] [address] Dr Kuhn [address] 1000Kyle [place], [id number], [place] tel:[phone] CVR - [facility] Encounter for follow-up examination after completed treatment for conditions other than malignant nePain in right leg 4 Stepan CALVILLO RVT, RPVI Robert. [address] [place] [address], [address], [place], [id number] , [place]. tel: [phone] [facility], [address] [place] [address] Dr Kuhn [address]Suite Kyle Cage MD, [id number], [place] tel:[phone] CVR - [facility] Chronic venous hypertension (idiopathic) without complications of bilateral lower extremityEsse ntial (primary) hypertension 4 Stepan CALVILLO RVT, JOHN Sharma. [address] [place] [address], [place], [id number] , [place]. tel: [phone] [facility], [address] [place] [address] Dr Kuhn [address]Suite Kyle Cage MD, [id number], [place] tel:[phone] CVR - [facility] Encounter for follow-up examination after completed treatment for conditions other than malignant neVaricose veins of right lower extremity with pain 4 Stepan CALVILLO RVT, JOHN Sharma. [address] [place] [address], [place], [id number] , [place]. tel: [phone] [facility], [address] [place] [address] Dr Kuhn [address]Suite Kyle Cage MD, [id number], [place] [phone] CVR - [facility] Encounter for follow-up examination after completed treatment for conditions other than malignant neoplasmVaric ose veins of right lower extremity with pain 3 Herbert Bobby. [address] [place] [address], [place], [address], [place]. tel: [phone] [facility], [address] [place] [address] Dr Kuhn [address]Suite Kyle Cage MD, [id number], [place] [phone] [facility]ose [facility] of right lower extremity with inflammation 3 Stepan CALVILLO RVT, JOHN Sharma. [address] [place] [address], [place] [address], [place], [id number] , [place]. tel: [phone] [facility], [address] [place] [address] Dr Kuhn 1000SuKyle montalvo [place], [id number], [place] tel:[phone] CVR [facility] Varicose veins of right lower extremity with other complications Essential (primary) hypertension Oct-3 0- 3 Stepan CALVILLO RVT, JOHN Sharma. [address] [place] [address], [place], [place], [id number] , [place]. tel: [phone] [facility], [address] [place] [address] Dr Kuhn [address] 1000Kyle MD, [id number], [place] tel:[phone] CVR - [facility] Encounter for follow-up examination after completed treatment for conditions other than malignant neoplasmVaric ose veins of right lower extremity with pain Oct-3 0- 3 Herbert CALVILLO FACS MELITON Bobby. [address] [place] [address], [place], [address], [place]. tel: [phone] [facility], [address] [place] [address] Dr Kuhn [address] 1000Kyle MD, [id number], [place] tel:[phone] CVR - [facility] Chronic venous hypertension (idiopathic) with inflammation of right lower extremity Oct-0 3 Stepan CALVILLO RVT, JOHN Sharma. [address] [place] [address], [place], [place], [id number] , [place]. tel: [phone] [facility], [address] [place] [address] Dr Kuhn [address] 1000Kyle [place], [id number], [place] tel:[phone] CVR - [facility] Encounter for follow-up examination after completed treatment for conditions other than malignant neVaricose veins of right lower extremity with pain Oct-0 2- 3 Herbert CALVILLO FACS MELITON Bobby. [address] [place] [address], [place], [address], [place]. tel: [phone] [facility], [address] [place] [address] Dr Kuhn [address] 1000Kyle MD, [id number], [place] tel:[phone] CVR - [facility] Chronic venous hypertension w inflammation of r low extrem Sep-2 3 Stepan CALVILLO RVT, JOHN Sharma. [address] [place] [address], Suite [facility], Viktor simon, [place], [id number] , [place]. tel: [phone] [facility], [address] [place] [address] Dr Kuhn [address] 1000Kyle [place], [id number], [place] tel:[phone] CVR - [place] [facility] [place] Chronic venous hypertension w inflammation of r low extrem Sep- 3 Stepan CALVILLO RVT, JOHN Sharma. [address] [place] [address], Suite [facility], [place] simon, [place], [id number] , [place]. tel: [phone] [facility], [address] [place] [address] Dr Kuhn [address] 1000Kyle [place], [id number], [place] tel:[phone] CV[facility] - [place] [facility] [place] Chronic venous htn w oth comp of bilateral low extrm 3 Herbert CALVILLO FACS [employer] JOHN Bobby. [address] [place] [address], [place], [place], [id number], [place]. tel: [phone] [facility], [address] [place] [address] Dr Kuhn [address] 1000Kyle MD, [id number], [place] tel:[phone] CV[facility] - [place] [facility] [place] Varicose veins of bilateral lower extremities with pain 3 Herbert CALVILLO FACS [employer] JOHN Bobby. [address] [place] [address], [place], [place], [address], [place]. tel: [phone] [facility], [address] [place] [address] Dr Kuhn [address] 1000Kyle [place], [id number], [place] tel:[phone] CVR - [place] [facility] [place] Varicose veins of bi low extrem w oth complications Pain in right lower legPain in left lower legEssential (primary) hypertensionF doron joint, unspecified jointPain in right legPain in left leg 3 Stepan CALVILLO RVT, JOHN Sharma. [address] [place] [address], [address], [place], [place], [id number] , [place]. tel: [phone] Family History Family Member Type Diagnosis Age At Onset No Information Payers Payer name Insurance type Identifiers Authorization(s) Com ments Medicare [place] pippa ID: [id number] Name: Coverage Status Eligibility Check on: [id number] nship to Subscriber: selfPayer Address: [address], [place], [place], [id number], [place]ayer Phone: [phone] [facility] r ID: [id number] Name: Coverage Status Eligibility Check on: [id number] nship to Subscriber: selfPayer Address: [address], [place], [address], [place]ayer Phone: [phone] Social History Type Description Quantity Date Captured Comments Sex Female Smoking Status No Information Current Gender Female (finding) Chief Complaint And Reason For Visit No Information Plan Of Treatment Date Type Action Status Goal Diet education completed Goal Tobacco cessation [...] nt Illness No Information Functional Status Date Description Comments No Information Instructions Date Instruction Additional Infor marky Diet education Related to Body mass index (BMI) 28.0-28.9, adult Giving Encouragement to exercise Related to Body mass index (BMI) 28.0-28.9, adult Lifestyle education Related to B veronica mass index (BMI) 28.0-28.9, adult Compression stocking [...]
--- OUTSIDE RECORDS SUMMARY | 2025-09-29 19:59 | XMS_ITS | Clinical Summary ---
Author Organization [address] Address [address] [place] [address] Phone Care Team Providers Care Solution Spec Name Role Phone Jaxson Stanton MD Primary Care Provider [phone] Allergies Active Allergy Reactions Criticality Noted Date [...] (one) time each day. Active glucos sul 0TXx-ien-ucrwg- C-Mn (Glucosamine Chondroitin) 550-30-1 mg capsule Take [...] (one) time each day before breakfast. Active kpye-zanj-tpk-y cr-rtz-tzzi-hor [phone] mg tablet Take by mouth. Activ e [...] AM EDT Sexual Orientation Not on file Last Filed Vital Signs Vital Sign Reading [...] this topic Medical Devices Implanted Type Area Storage Battery Inspector Device Identifier Shelf Expiration Date Model / [...] pathology results. Narrative 01/05/2025 11:[address] [facility] GI Patient Name: Kaleigh Elder Procedure Date: [...] not prolapse). Procedure Code(s): --- Professional --- 07877, Colonoscopy, flexible; with removal of tumor(s), polyp(s), or other lesion(s) by snare technique Diagnosis Code(s): --- Professional --- Z86.010, Personal history of colonic polyps D12.0, Benign neoplasm of cecum D12.2, Benign neoplasm of ascending colon D12.3, Benign neoplasm of transverse colon (hepatic flexure or splenic flexure) CPT copyright 2020 [employer]. All rights reserved. The codes documented in this report are preliminary and upon executive director review may be revised to meet current compliance requirements. Moriah Doe MD 01/05/2025 11:10:52 AM This report has been signed electronically.Moriah Doe MD Number of Addenda: 0 Note Initiated On: 01/05/2025 10:40 AM Scope In: Scope Out: Endoscopy Department at [facility] - [address] [place] [phone] Procedure Note Moriah Doe MD - 01/05/2025 [facility] Patient Name: Kaleigh Elder Procedure Date: [...] not prolapse). Procedure Code(s): --- Professional --- 36945, Colonoscopy, flexible; with removal of tumor(s), polyp(s), or other lesion(s) by snare technique Diagnosis Code(s): --- Professional --- Z86.010, Personal history of colonic polyps D12.0, Benign neoplasm of cecum D12.2, Benign neoplasm of ascending colon D12.3, Benign neoplasm of transverse colon (hepatic flexure or splenic flexure) CPT copyright 2020 [employer]. All rights reserved. The codes documented in this report are preliminary and upon executive director reviewmay be revised to meet current compliance requirements. Moriah Doe MD 01/05/2025 11:10:52 AM This report has been signed electronically.Moriah Doe MD Number of Addenda: 0 Note Initiated On: 01/05/2025 10:40 AM Scope In: Scope Out: Endoscopy Department at [facility] - [address] [place] [id number] IMPRESSION: - The examined portion of the [...] Recently Relevant to Health Maintenance Insurance MEDICARE [facility] Care Teams Solution Spec Relationship Specialty Start Date End Date Jaxson Stanton MD [address] [place] [phone] PCP - General Internal Medicine 08/18/24
== END 2025-09-29 14:59 | disposition home or self-care (01) ==
LOC: HO.HMGAL 14:59
PROVIDERS: PCP Internal Medicine; Visit Provider Registered Nurse Emergency
DX: J30.89 Other allergic rhinitis (principal)
CPT/HCPCS: 95117; 95165